=== PATIENT | female | born 2000 | race Caucasian/White ===

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

== ENCOUNTER 2022-07-03 17:57 | Emergency (ER) | payer BC ==
--- OUTSIDE RECORDS SUMMARY | 2022-07-03 18:05 | XMS REPORT | Continuity of Care Document ---
:2000 Author Organization [facility] t Address [address] [place] [address] Care Team Providers Name Role Phone Leilani Burger MD Primary Care Physician [phone] SERGIO LOPEZ Attending Clinician Unavailable ENOCH FRAGA Attending Clinician Unavailable Shar Moreno Attending Clinician Unknown, Attending Attending Clinician Unavailable SHAR COTE Attending Clinician Unavailable SULY MORALES Attending Clinician Unavailable LAB90 Attending Clinician Unavailable Team, [facility] Attending Clinician UnavailEnoch Ledesma PA-C Attending Clinician Doctor Unassigned, [place] Attending Clinician Unavailable Vanna Lopez LVN Attending Clinician Unavailable Apolonia IZAGUIRRE, Marina Bateman Attending Clinician Unavailable Chari Morataya Attending Clinician [phone] Rajani Frank Attending Clinician CHARI REYES Attending Clinician Unavailable SONIA FIGUEROA Attending Clinician Unavailable Sonia Figueroa MD Attending Clinician Niharika Reilly Attending Clinician TRACE OTTO III Attending Clinician Unavailable Alejandro IZAGUIRRE, Olivia Attending Clinician Unavailable LON FOX M.D. Attending Clinician UnavailKILLIAN Richey M.D. Attending Clinician Unavailable RENETTA ALEGRE M.D. Attending Clinician Unavailable ALDO LATIF M.D. Attending Clinician Unavailable Blanquita Pressley PA-C Attending Clinician SERGIO LOPEZ M.D. Attending Clinician Unavailable Balaji Armas MD Attending Clinician BALAJI ARMAS Attending Clinician Unavailable [address] Attending Clinician Unavailable Mdaina Dawson Attending Clinician MADINA MCKEON Attending Clinician Unavailable JENYN ALLISON M.D. Attending Clinician Unavailable DR CHANDAN MCKEON Attending Clinician Unavailable JOSUE ENCINAS M.D. Attending Clinician Unavailable DR CHANDAN MCKEON Admitting Clinician Unavailable Payers Payer Name Policy Type Policy Number Effective Date Expiration Date S ource [id number] PPO AND [id number] 2021 OUT OF STATE 00:00:00 BCBS 2 [id number] 2022 00:00:00 AETNA HMO [id number] 2018 00:00:00 Problems Condition Condition Condition Status Onset Resolution Last Treating Co mments Source Name Details Category Date Date Treatment Clinician Date Well adult Well adult Disease Active 2021-08 K elsey exam exam 08-18 Seybold 00:00: - 00 Externa l Seasonal Seasonal Disease Active 2021-08 Kelse y allergic allergic 08-18 Seybol d rhinitis rhinitis 00:00: - due to due to 00 Externa pollen pollen l 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 08-18 Seybold 00:00: - 00 Externa l 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 Sees. Dr. Allison and Dr. Soto Migraine Migraine Disease Active Overview: Un angella headache headache 12 Formattin ity of 00:00: g of this [place] 00 note Medical might be Branch different from the original. Dr. Alegre Spina Spina Disease Active Univers bifida bifida 12 ity of 00:00: [place] 00 Medical Branch Glaucoma Glaucoma Disease Active Overview: Un angella 6-12 Formattin ity of 00:00: g of this 00 note Medical might be Branch different from the original. Dr. Pacheco PTSD PTSD Disease Active Univers (post-trau (post-trau 01-25 it y of matic matic 00:00: [place] stress stress 00 Medical disorder) disorder) Bran ch Anxiety Anxiety Disease Active Univers - ity of 00:00: [place] 00 Medical Branch Constipati Constipati Disease Active U nivers on on 01-25 ity of 00:00: [place] 00 Medical Branch On oral On oral Disease Active Univers contracept contracept 09-15 it y of david pills david pills 00:00: [place] for for Medical non-contra non-contra Br anch ception ception indication indication Excessive Excessive Disease Active Uni vers or or 09-15 ity of frequent frequent 00:00: [place] menstruati menstruati 00 Me dical on on Branch Family Family Disease Active Univers history of history of 09-15 it y of stroke stroke 00:00: [place] 00 Medical Branch Epilepsy Epilepsy Problem Active [facility] ans Encephalit Encephalit Problem Active U T is is Physici ans 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 Migraine Migraine Problem Active [facility] Physici ans Blood per Blood per Problem Active UT rectum rectum Physici ans 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 Physici ans Hematochez Hematochez Problem Active U T ia ia Physici ans Incontinen Incontinen Problem Active U T ce ce Physici ans Chronic Chronic Problem Active UT constipati constipati Ph ysici on on ans Dysmenorrh Dysmenorrh Problem Active U T ea ea Physici ans On On Problem Active UT rituximab rituximab Phys ici therapy therapy ans 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 Seizure-li Seizure-li Problem Active U T ke ke Physici activity activity ans Allergies, Adverse Reactions, Alerts Allergy Allergy Status Severity Reaction(s) Onset Inactive Treating Comm ents Source Name Type Date Date Clinician Lidocain Allergy Active UT e to 10-20 Health substanc 00:00: e 00 Sulfamet Allergy Active UT hoxazole to 10-20 Health -Trimeth substanc 00:00: oprim e 00 Lidocain Propensi Active Negrita e Hcl ty to 3-07 Seybold adverse 00:00: - reaction 00 Externa s l Sulfamet Propensi Active Negrita hoxazole ty to 3-07 Seybold W-Trimet adverse 00:00: - hoprim reaction 00 Externa s l SULFAMET DRUG Active Rash 2018-08 Univers HOPRIM 2-20 ity of DS 00:00: [place] [facility] Sulfamet Propensi Active Rash 2018-08 Univer s hoprim ty to 2-20 ity of Ds adverse 00:00: [place] reaction 00 Medical s Branch Sulfa Propensi Active Swelling 2017-08 Negrita Drugs ty to 1-26 Seybold adverse 00:00: - reaction 00 Externa s l TREE Food Active Med Rash 2016-08 Univers NUTS 0-18 ity of 00:00: [place] 00 Medical Branch Tree Propensi Active Rash 2016-08 Univers Nuts ty to 0-18 ity of adverse 00:00: [place] reaction 00 Medical s Branch Bactrim Allergy Active UT to drug Physici (finding ans ) Lidocain Allergy Active UT e HCl to drug Physici SOLN (finding ans ) Nuts Allergy Active UT to Physici substanc ans e (finding ) Bactrim DA Active Unknown Rash [facility] Nut FA Active Severe Swelling of [facility] Family History Family Member Diagnosis Comments Start Date Stop Date Source Grandmother Family history of factor V [facility] Leiden mutation Grandfather Family history of [facility] Intestinal polyps aunt Family history of factor V [facility] Leiden mutation uncle Family history of [facility] ulcerative colitis Mother Family history of [facility] Non-smoker Mother Family history of Blood U T Physicians clots in brain Father Family history of [facility] Non-smoker Social History Social Habit Start Date Stop Date Quantity Comments Source Exposure to 2022-06-16 2022-06-26 Not sure University SARS-CoV-2 00:00:00 10:45:00 [place] Medical (event) Branch Alcohol intake 2022-06-18 2022-06-18 Lifetime Negrita sam - 00:00:00 00:00:00 non-drinker External (finding) Education 2022-06-18 2022-06-18 16 Negrita Neal - 00:00:00 00:00:00 External Tobacco use and 2022-06-18 2022-06-18 Smokeless tobacco Zeke Neal - exposure 00:00:00 00:00:00 non-user External Tobacco Comment 2016-12-10 2016-12-10 Denies smoking Unive rsity of 00:00:00 00:00:00 exposure [facility] Sex Assigned At [birth year] Negrita starkey - 00:00:00 00:00:00 External Smoking Status Start Date Stop Date Source Tobacco smoking consumption unknown [facility] Never smoked tobacco Negrita Billju walters - External Medications Ordered Filled Start Stop Current Ordering Indication Dosage Frequency Signature Comments Components Source Medication Medication Date Date Medication? Clinician (SIG) Name Name montelukast 2021-08- Yes [id number] 10mg Take 1 Univers (SINGULAIR) 08-26 1212 tablet by it y of 10 mg 00:00: 05:59 mouth in [place] tablet 00 :00 the [facility] Branch for 30 days. promethazin 2021-08- Yes [id number] 5mL Take 5 mL Univers e-dextromet 08-2619 by mouth 4 i ty of horphan 00:00: 05:59 (four) [place] 6.25-15 00 :00 times Medical mg/5 mL daily for Branch syrup 7 days. predniSONE 2021-08- Yes [id number] 40mg Take 2 Univers 20 mg 08-26-17 tablets by ity of tablet 00:00: 05:59 mouth in [place] 00 :00 the [facility] Branch for 5 days. Ethynodiol 2021-08- No 1{tbl} Take 1 Zeke suero Diac-Eth 08-18 tablet by Sejuo ld Estradiol 10:14: 00:00 mouth - 1-35 MG-MCG 49 :00 daily Externa oral Tablet l Polyethylen 2021-08 Yes Take by Dalton crow e Glycol 08-18 mouth Seybold 3350 09:45: - (MIRALAX 56 Externa OR) l Levocetiriz 2021-08 Yes [id number] 5mg Take 1 Negrita ine 03 tablet (5 Seybold Dihydrochlo 00:00: mg total) - ride 5 MG 00 by mouth Linen Aide a oral Tablet every day l at 5:00 PM Amoxicillin 2021-08 Yes Negrita 875 MG oral 0-27 Seybold Tablet 00:00: - 00 Externa l Estarylla Yes 1{tbl} Take 1 Yuli ey 0.25-35 9-10 tablet by Seybold MG-MCG oral 00:00: mouth - Tablet 00 daily Externa l venlafaxine 0 Yes 37.5mg Take 37.5 UT XR 4-22 mg by Health (Effexor-XR 00:00: mouth 1 ) 37.5 MG 00 (one) time 24 hr each day capsule in the morning. Adderall XR Yes 5mg Take 5 mg U T 5 MG 24 hr 3-29 by mouth 1 Hea lth capsule 00:00: (one) time 00 each day in the morning. norgestimat Yes [id number] 1{tbl} Take 1 Univers e-ethinyl 3-22 tablet by ity o f estradioL 00:00: mouth [place] (ESTARYLLA) 00 daily. Medica l 0.25-35 Branch mg-mcg per tablet norgestimat Yes [id number] 1{tbl} Take 1 Univers e-ethinyl 3-22 tablet by ity o f estradioL 00:00: mouth [place] (ESTARYLLA) 00 daily. Medica l 0.25-35 Branch mg-mcg per tablet norgestimat Yes [id number] 1{tbl} Take 1 Univers e-ethinyl 3-22 tablet by ity o f estradioL 00:00: mouth [place] (ESTARYLLA) 00 daily. Medica l 0.25-35 Branch mg-mcg per tablet norgestimat Yes [id number] 1{tbl} Take 1 Univers e-ethinyl 3-22 tablet by ity o f estradioL 00:00: mouth [place] (ESTARYLLA) 00 daily. Medica l 0.25-35 Branch mg-mcg per tablet norgestimat Yes [id number] 1{tbl} Take 1 Univers e-ethinyl 3-22 tablet by ity o f estradioL 00:00: mouth [place] (ESTARYLLA) 00 daily. Medica l 0.25-35 Branch mg-mcg per tablet ethynodiol- 2021-0 Yes TAKE 1 UT ethinyl 3-07 TABLET [facility] estradiol 10:10: DAILY. (Kelnor 01 ) 1-35 MG-MCG tablet levocetiriz 2021-0 Yes 5mg 5 mg. UT ine (Xyzal 10-20 Health Allergy 10:10: 24HR) 5 MG 01 tablet azithromyci 2021-0 Yes 500mg QD Take 500 U T n 3-03 mg by Health (Zithromax) 00:00: mouth 1 500 MG 00 (one) time tablet each day. TAKE 1 TABLET BY MOUTH EVERY DAY FOR 7 DAYS dexamethaso 2021-0 Yes 2mg Q.5D Take 2 mg U T ne 3-03 by mouth 2 Health (Decadron) 00:00: (two) 2 MG tablet 00 times a day. for 10 days gabapentin 2021-0 Yes TAKE 1 UT (Neurontin) 3-03 CAPSULE BY He alth 100 MG 00:00: MOUTH capsule 00 TWICE A DAY FOR 15 DAYS pantoprazol 2021-0 Yes UT e 3-03 Health (ProtoNix) 00:00: 40 MG EC 00 tablet pantoprazol 2021-0 Yes Univer s e 40 mg EC 3-03 ity of tablet 00:00: [place] [address] Medical Branch gabapentin 2022-0 Yes Univers 100 mg 3-03 ity of capsule 00:00: [place] [facility] dexAMETHaso 2-0 Yes Univer s ne 2 mg 3-03 ity of tablet 00:00: [place] [facility] azithromyci 2-0 Yes Univer s n 500 mg 3-03 ity of tablet 00:00: [place] [facility] pantoprazol 2-0 Yes Univer s e 40 mg EC 3-03 ity of tablet 00:00: [place] [address] Medical Branch gabapentin 2022-0 Yes Univers 100 mg 3-03 ity of capsule 00:00: [place] [address] Medical Branch dexAMETHaso 2022-0 Yes Univer s ne 2 mg 3-03 ity of tablet 00:00: [place] [facility] azithromyci 2-0 Yes Univer s n 500 mg 3-03 ity of tablet 00:00: [place] [address] Medical Branch pantoprazol 2022-0 Yes Univer s e 40 mg EC 3-03 ity of tablet 00:00: [place] 00 Medical Branch gabapentin 2-0 Yes Univers 100 mg 3-03 ity of capsule 00:00: [place] [facility] dexAMETHaso 2022-0 Yes Univer s ne 2 mg 3-03 ity of tablet 00:00: [place] [facility] azithromyci 2021-0 Yes Univer s n 500 mg 3-03 ity of tablet 00:00: [place] [facility] pantoprazol 2021-0 Yes Univer s e 40 mg EC 3-03 ity of tablet 00:00: [place] [facility] gabapentin 2-0 Yes Univers 100 mg 3-03 ity of capsule 00:00: [place] [facility] dexAMETHaso 202-0 Yes Univer s ne 2 mg 3-03 ity of tablet 00:00: [place] [facility] azithromyci 2021-0 Yes Univer s n 500 mg 3-03 ity of tablet 00:00: [place] [facility] pantoprazol 2021-0 Yes Univer s e 40 mg EC 3-03 ity of tablet 00:00: [place] [facility] gabapentin 2-0 Yes Univers 100 mg 3-03 ity of capsule 00:00: [place] [facility] dexAMETHaso 2021-0 Yes Univer s ne 2 mg 3-03 ity of tablet 00:00: [place] [facility] azithromyci 2021-0 Yes Univer s n 500 mg 3-03 ity of tablet 00:00: [place] [facility] ipratropium 2021-0 Yes 1 VIAL VIA Univers -albuteroL 2-25 NEBULIZER ity of 0.5 mg-3 00:00: NEEDED [place] mg(2.5 mg 00 INHALATION Medi lucie base)/3 mL EVERY 6 Branch nebulizer HRS 30 solution DAYS ipratropium 2021-0 Yes 1 VIAL VIA Univers -albuteroL 2-25 NEBULIZER ity of 0.5 mg-3 00:00: NEEDED [place] mg(2.5 mg 00 INHALATION Medi lucie base)/3 mL EVERY 6 Branch nebulizer HRS 30 solution DAYS ipratropium 2021-0 Yes 1 VIAL VIA Univers -albuteroL 2-25 NEBULIZER ity of 0.5 mg-3 00:00: NEEDED [place] mg(2.5 mg 00 INHALATION Medi lucie base)/3 mL EVERY 6 Branch nebulizer HRS 30 solution DAYS ipratropium 0 Yes 1 VIAL VIA Univers -albuteroL 2-25 NEBULIZER ity of 0.5 mg-3 00:00: NEEDED [place] mg(2.5 mg 00 INHALATION Medi lucie base)/3 mL EVERY 6 Branch nebulizer HRS 30 solution DAYS ipratropium 0 Yes 1 VIAL VIA Univers -albuteroL 2-25 NEBULIZER ity of 0.5 mg-3 00:00: NEEDED [place] mg(2.5 mg 00 INHALATION Medi lucie base)/3 mL EVERY 6 Branch nebulizer HRS 30 solution DAYS Albuterol-I Yes 1 VIAL VIA Negrita pratropium 2-25 NEBULIZER Seyb old 0.5-2.5 (3) 00:00: NEEDED - MG/3ML 00 INHALATION Externa inhalation EVERY 6 l Solution HRS 30 DAYS montelukast 0 Yes 10mg QD Take 10 mg UT (Singulair) 2-17 by mouth 1 He alth 10 MG 00:00: (one) time tablet 00 each day. Montelukast Yes 10mg Take 10 mg Negrita (SINGULAIR) 2-17 by mouth Seyb old 10 MG oral 00:00: daily - Tablet 00 Externa tablet l escitalopra Yes 20mg Take 20 mg Univers m oxalate 2-15 by mouth ity of 20 mg 00:00: daily. [place] tablet [facility] escitalopra Yes 20mg Take 20 mg Univers m oxalate 2-15 by mouth ity of 20 mg 00:00: daily. [place] tablet [facility] Branch escitalopra Yes 20mg Take 20 mg Univers m oxalate 2-15 by mouth ity of 20 mg 00:00: daily. [place] tablet [facility] Branch escitalopra Yes 20mg Take 20 mg Univers m oxalate 2-15 by mouth ity of 20 mg 00:00: daily. [place] tablet [facility] escitalopra Yes 20mg Take 20 mg Univers m oxalate 2-15 by mouth ity of 20 mg 00:00: daily. [place] tablet [facility] Escitalopra Yes 20mg Take 20 mg Negrita m Oxalate 2-15 by mouth Seybol d 20 MG oral 00:00: daily - Tablet 00 Externa l vitamin B 2021-0 Yes Take by Unive rs complex (B 2-13 mouth. ity of COMPLEX-VIT 11:08: [place] GARNETT B12 01 Medical ORAL) Branch Magnesium 2021-0 Yes Take by Unive rs Amino Acid 2-13 mouth. ity of Chelate 100 11:08: [place] mg Tab 01 Medical Branch vitamin B 2021-0 Yes Take by Unive rs complex (B 2-13 mouth. ity of COMPLEX-VIT 11:08: [place] GARNETT B12 Medical ORAL) Branch Magnesium 2021-0 Yes Take by Unive rs Amino Acid 2-13 mouth. ity of Chelate 100 11:08: [place] mg Tab 01 Medical Branch vitamin B 2021-0 Yes Take by Unive rs complex (B 2-13 mouth. ity of COMPLEX-VIT 11:08: [place] GARNETT B12 Medical ORAL) Branch Magnesium 2021-0 Yes Take by Unive rs Amino Acid 2-13 mouth. ity of Chelate 100 11:08: [place] mg Tab 01 Medical Branch vitamin B 2021-0 Yes Take by Unive rs complex (B 2-13 mouth. ity of COMPLEX-VIT 11:08: [place] GARNETT B12 01 Medical ORAL) Branch Magnesium 2021-0 Yes Take by Unive rs Amino Acid 2-13 mouth. ity of Chelate 100 11:08: [place] mg Tab 01 Medical Branch vitamin B 2021-0 Yes Take by Unive rs complex (B 2-13 mouth. ity of COMPLEX-VIT 11:08: [place] GARNETT B12 Medical ORAL) Branch Magnesium 2021-0 Yes Take by Unive rs Amino Acid 2-13 mouth. ity of Chelate 100 11:08: [place] mg Tab 01 Medical Branch benzonatate 2021-0 Yes TAKE 2 UT (Tessalon) 1-31 CAPSULES Healt h 100 MG 00:00: BY MOUTH capsule 00 EVERY 8 (EIGHT) HOURS NEEDED FOR COUGH. benzonatate 2021-0 Yes [id number] 200mg Take 2 Univers 100 mg 1-31 capsules ity of capsule 00:00: by mouth [place] 00 every 8 Medical (eight) Branch hours as needed for Cough. budesonide- 2021-0 Yes [id number] 2{puff} Inhale 2 Univers formoteroL 1-31 Puffs 2 ity of (SYMBICORT) 00:00: (two) [place] 160-4.5 00 times Medical mcg/actuati daily. Branch on inhaler benzonatate Yes [id number] 200mg Take 2 Univers 100 mg 1-31 capsules ity of capsule 00:00: by mouth [place] 00 every 8 Medical (eight) Branch hours as needed for Cough. budesonide- Yes [id number] 2{puff} Inhale 2 Univers formoteroL 1-31 Puffs 2 ity of (SYMBICORT) 00:00: (two) [place] 160-4.5 00 times Medical mcg/actuati daily. Branch on inhaler benzonatate Yes [id number] 200mg Take 2 Univers 100 mg 1-31 capsules ity of capsule 00:00: by mouth [place] 00 every 8 Medical (eight) Branch hours as needed for Cough. budesonide- Yes [id number] 2{puff} Inhale 2 Univers formoteroL 1-31 Puffs 2 ity of (SYMBICORT) 00:00: (two) [place] 160-4.5 00 times Medical mcg/actuati daily. Branch on inhaler benzonatate Yes [id number] 200mg Take 2 Univers 100 mg 1-31 capsules ity of capsule 00:00: by mouth [place] 00 every 8 Medical (eight) Branch hours as needed for Cough. budesonide- Yes [id number] 2{puff} Inhale 2 Univers formoteroL 1-31 Puffs 2 ity of (SYMBICORT) 00:00: (two) [place] 160-4.5 00 times Medical mcg/actuati daily. Branch on inhaler benzonatate 0 Yes [id number] 200mg Take 2 Univers 100 mg 1-31 capsules ity of capsule 00:00: by mouth [place] 00 every 8 Medical (eight) Branch hours as needed for Cough. budesonide- 2021-0 Yes [id number] 2{puff} Inhale 2 Univers formoteroL 1-31 Puffs 2 ity of (SYMBICORT) 00:00: (two) [place] 160-4.5 00 times Medical mcg/actuati daily. Branch on inhaler OLANZapine 2021-1 Yes Univers 2.5 mg 2-29 ity of tablet 00:00: [place] 00 Medical Branch OLANZapine 2020-1 Yes Univers 2.5 mg 2-29 ity of tablet 00:00: [place] 00 Medical Branch OLANZapine 2020-1 Yes Univers 2.5 mg 2-29 ity of tablet 00:00: [place] 00 Medical Branch OLANZapine 2020-1 Yes Univers 2.5 mg 2-29 ity of tablet 00:00: [place] 00 Medical Branch OLANZapine 2020-1 Yes Univers 2.5 mg 2-29 ity of tablet 00:00: [place] 00 Medical Branch polyethylen 2020- Yes Take by Uni vers e glycol 1-10 mouth. ity of 3350 14:17: [place] (MIRALAX 10 Medical ORAL) Branch levocetiriz 2020- Yes 5mg Take 5 mg U nivers ine (XYZAL) 1-10 by mouth ity of 5 mg tablet 14:17: every [place] 10 evening. Medical Branch polyethylen 2020- Yes Take by Uni vers e glycol 1-10 mouth. ity of 3350 14:17: [place] (MIRALAX 10 Medical ORAL) Branch levocetiriz 2019- Yes 5mg Take 5 mg U nivers ine (XYZAL) 1-10 by mouth ity of 5 mg tablet 14:17: every [place] 10 evening. Medical Branch polyethylen 2020- Yes Take by Uni vers e glycol 1-10 mouth. ity of 3350 14:17: [place] (MIRALAX 10 Medical ORAL) Branch levocetiriz 2020- Yes 5mg Take 5 mg U nivers ine (XYZAL) 1-10 by mouth ity of 5 mg tablet 14:17: every [place] 10 evening. Medical Branch polyethylen 2019- Yes Take by Uni vers e glycol 1-10 mouth. ity of 3350 14:17: [place] (MIRALAX 10 Medical ORAL) Branch levocetiriz 2020- Yes 5mg Take 5 mg U nivers ine (XYZAL) 1-10 by mouth ity of 5 mg tablet 14:17: every [place] 10 evening. Medical Branch polyethylen 2020- Yes Take by Uni vers e glycol 1-10 mouth. ity of 3350 14:17: [place] (MIRALAX 10 Medical ORAL) Branch levocetiriz 2020- Yes 5mg Take 5 mg U nivers ine (XYZAL) 1-10 by mouth ity of 5 mg tablet 14:17: every [place] 10 evening. Medical Branch busPIRone 5 2020- Yes 5mg Take 5 mg U nivers mg tablet 0-21 by mouth 2 ity of 00:00: (two) [place] 00 times Medical daily. Branch busPIRone 5 2019- Yes 5mg Take 5 mg U nivers mg tablet 0-21 by mouth 2 ity of 00:00: (two) [place] 00 times Medical daily. Branch busPIRone 5 2020- Yes 5mg Take 5 mg U nivers mg tablet 0-21 by mouth 2 ity of 00:00: (two) [place] 00 times Medical daily. Branch busPIRone 5 2019- Yes 5mg Take 5 mg U nivers mg tablet 0-21 by mouth 2 ity of 00:00: (two) [place] 00 times Medical daily. Branch busPIRone 5 2019- Yes 5mg Take 5 mg U nivers mg tablet 0-21 by mouth 2 ity of 00:00: (two) [place] 00 times Medical daily. Branch albuterol 2020-0 Yes [id number] 2.5mg Inhale 3 Univers 2.5 mg /3 5-22 mL every 4 ity of mL (0.083 00:00: ([facility] [place]) [place] %) 00 hours as Medical nebulizer needed for Bran ch solution Wheezing, Shortness of Breath, Bronchospa sm or Chest tightness. albuterol 2020-0 Yes [id number] 2.5mg Inhale 3 Univers 2.5 mg /3 5-22 mL every 4 ity of mL (0.083 00:00: ([facility]) [place] %) 00 hours as Medical nebulizer needed for Bran ch solution Wheezing, Shortness of Breath, Bronchospa sm or Chest tightness. albuterol 2020-0 Yes [id number] 2.5mg Inhale 3 Univers 2.5 mg /3 5-22 mL every 4 ity of mL (0.083 00:00: (four) [place] %) 00 hours as Medical nebulizer needed for Bran ch solution Wheezing, Shortness of Breath, Bronchospa sm or Chest tightness. albuterol 2020-0 Yes [id number] 2.5mg Inhale 3 Univers 2.5 mg /3 5-22 mL every 4 ity of mL (0.083 00:00: (four) [place] %) 00 hours as Medical nebulizer needed for Bran ch solution Wheezing, Shortness of Breath, Bronchospa sm or Chest tightness. albuterol Yes [id number] 2.5mg Inhale 3 Univers 2.5 mg /3 5-22 mL every 4 ity of mL (0.083 00:00: (four) [place] %) 00 hours as Medical nebulizer needed for Bran ch solution Wheezing, Shortness of Breath, Bronchospa sm or Chest tightness. Rituxan 100 Rituxan 100 Yes KILLIAN Infuse UT MG/10ML MG/10ML 2-19 GUS M.D. once every Physici Intravenous Intravenous 00:00: five ans Solution Solution 00 months. riTUXimab Yes Infuse UT (Rituxan) 2-19 once every Heal th 100 MG/10ML 00:00: five chemo 00 months. injection montelukast 2018-08 Yes [id number] TAKE 1 Univers 10 mg 1-11 TABLET BY ity of tablet 00:00: MOUTH [place] 00 EVERYDAY [id number] TA[facility] 1 Univers 10 mg 1-11 TABLET BY ity of tablet 00:00: MOUTH [place] 00 EVERYDAY Medical AT [facility] 2018-08 Yes [id number] TAKE 1 Univers 10 mg 1-11 TABLET BY ity of tablet 00:00: MOUTH [place] 00 EVERYDAY Medical AT [facility] 2018-08 Yes [id number] TAKE 1 Univers 10 mg 1-11 TABLET BY ity of tablet 00:00: MOUTH [place] [facility] [id number] TAKE 1 Univers 10 mg 1-11 TABLET BY ity of tablet 00:00: MOUTH [place] 00 EVERYDAY Medical AT [facility] Escitalopra Escitalopra 2018-08 Yes JENNY TAKE ONE [facility] m Oxalate m Oxalate 1-05 HUMAIRA TAB DAILY. [facility] 20 MG Oral 20 MG Oral 00:00: M.D. a ns Tablet Tablet escitalopra 2018-08 Yes 20mg 20 mg. [facility] m (Lexapro) 1-05 Health 20 MG 00:00: tablet 00 escitalopra 2018-08 Yes 10mg Take 10 mg Univers m oxalate 0-22 by mouth ity of 10 mg 00:00: daily. tablet Medical Branch escitalopra 2018-08 Yes 10mg Take 10 mg Univers m oxalate 0-22 by mouth ity of 10 mg 00:00: daily. tablet Medical [place] escitalopra 2018-08 Yes 10mg Take 10 mg Univers m oxalate 0-22 by mouth ity of 10 mg 00:00: daily. tablet Medical [place] escitalopra 2018-08 Yes 10mg Take 10 mg Univers m oxalate 0-22 by mouth ity of 10 mg 00:00: daily. tablet Medical [place] escitalopra 2018-08 Yes 10mg Take 10 mg Univers m oxalate 0-22 by mouth ity of 10 mg 00:00: daily. tablet [facility] ARIPiprazol Yes TAKE 1 Univ ers e 5 mg 6-07 TABLET BY ity of tablet 00:00: MOUTH EVERYDAY Medical AT BEDTIME [place] ARIPiprazol 0 Yes TAKE 1 Univ ers e 5 mg 6-07 TABLET BY ity of tablet 00:00: MOUTH EVERYDAY Medical AT BEDTIME [place] ARIPiprazol Yes TAKE 1 Univ ers e 5 mg 6-07 TABLET BY ity of tablet 00:00: MOUTH EVERYDAY Medical AT BEDTIME [place] ARIPiprazol 0 Yes TAKE 1 Univ ers e 5 mg 6-07 TABLET BY ity of tablet 00:00: MOUTH EVERYDAY Medical AT BEDTIME [place] ARIPiprazol 0 Yes TAKE 1 Univ ers e 5 mg 6-07 TABLET BY ity of tablet 00:00: MOUTH EVERYDAY Medical AT BEDTIME Branch albuterol 0 Yes [id number] 2{puff} Inhale 2 Univers (PROAIR 3-07 Puffs ity of HFA) 90 00:00: every 6 [place] mcg/actuati 00 (six) Medical on inhaler hours as Branc h needed for Wheezing or Shortness of Breath. Nebulizer & 2019-0 Yes [id number] Use as Univers Compressor 3-07 directed ity o f For Neb 00:00: [place] [facility] albuterol 2018-0 Yes [id number] 2{puff} Inhale 2 Univers (PROAIR 3-07 Puffs ity of HFA) 90 00:00: every 6 [place] mcg/actuati 00 (six) Medical on inhaler hours as Branc h needed for Wheezing or Shortness of Breath. Nebulizer & Yes [id number] Use as Univers Compressor 3-07 directed ity o f For Neb 00:00: Medical Branch albuterol Yes [id number] 2{puff} Inhale 2 Univers (PROAIR 3-07 Puffs ity of HFA) 90 00:00: every 6 [place] mcg/actuati 00 (six) Medical on inhaler hours as Branc h needed for Wheezing or Shortness of Breath. Nebulizer & Yes [id number] Use as Univers Compressor 3-07 directed ity o f For Neb 00:00: Medical Branch albuterol Yes [id number] 2{puff} Inhale 2 Univers (PROAIR 3-07 Puffs ity of HFA) 90 00:00: every 6 [place] mcg/actuati 00 (six) Medical on inhaler hours as Branc h needed for Wheezing or Shortness of Breath. Nebulizer & Yes [id number] Use as Univers Compressor 3-07 directed ity o f For Neb 00:00: Medical Branch albuterol Yes [id number] 2{puff} Inhale 2 Univers (PROAIR 3-07 Puffs ity of HFA) 90 00:00: every 6 [place] mcg/actuati 00 (six) Medical on inhaler hours as Branc h needed for Wheezing or Shortness of Breath. Nebulizer & Yes [id number] Use as Univers Compressor 3-07 directed ity o f For Neb 00:00: Medical Branch Famotidine Famotidine Yes JENNY QD TAKE 1 UT 20 MG Oral 20 MG Oral 1-15 HUMAIRA TABLET [facility] Tablet Tablet 00:00: M.D. DAILY ans 00 DIRECTED. prazosin 1 Yes TAKE ONE Uni vers mg capsule 1-12 CAPSULE BY ity of 00:00: MOUTH IN [place] THE Medical EVENING Branch prazosin 1 Yes TAKE ONE Uni vers mg capsule 1-12 CAPSULE BY ity of 00:00: MOUTH IN [place] THE Medical EVENING Branch prazosin 1 Yes TAKE ONE Uni vers mg capsule 1-12 CAPSULE BY ity of 00:00: MOUTH IN [place] 00 THE Medical EVENING Branch prazosin 1 Yes TAKE ONE Uni vers mg capsule 1-12 CAPSULE BY ity of 00:00: MOUTH IN [place] 00 THE [facility] Branch prazosin 1 Yes TAKE ONE Uni vers mg capsule 1-12 CAPSULE BY ity of 00:00: MOUTH IN [place] 00 [facility] Levocetiriz 2016-08- No 5mg 5 mg Kelse y ine 0-26 06-18 Seybold Dihydrochlo 00:00: 00:00 - ride 5 MG 00 :00 Externa oral Tablet l Xyzal Xyzal Yes 1 QD TAKE 1 UT Allergy Allergy TABLET [facility] 24HR 5 MG 24HR 5 MG DAILY. ans Oral Tablet Oral Tablet Kelnor 1/35 Kelnor 1/35 Yes 1 QD TAKE 1 UT 1-35 MG-MCG 1-35 MG-MCG TABLET [facility] Oral Tablet Oral Tablet DAILY. ans Abilify Abilify Yes 7.5 QD take 7.5 UT TABS TABS mg daily [facility] ans Culturelle Culturelle Yes 1 QD TAKE 1 U T Oral Oral CAPSULE [facility] Capsule Capsule DAILY ans Chelated Chelated Yes QD TAKE 1 UT Magnesium Magnesium TABLET Phy sici TABS TABS DAILY ans Multivitami Multivitami Yes U T ns CAPS ns CAPS [facility] ans Singulair Singulair Yes UT PACK PACK [facility] ans Melatonin Melatonin Yes UT TABS TABS [facility] ans Advil TABS Advil TABS Yes TAKE UT TABLET PRN [facility] ans ZyPREXA 10 ZyPREXA 10 Yes 1 QD TAKE 1 U T MG Oral MG Oral TABLET [facility] Tablet Tablet DAILY. ans busPIRone busPIRone Yes Q0.3333D TAKE 1 UT HCl - 15 MG HCl - 15 MG TABLET 3 [facility] Oral Tablet Oral Tablet TIMES ans DAILY. Immunizations Ordered Immunization Filled Immunization Date Status Commen ts Source Name Name Influenza Virus 2022-06-18 Completed Negrita strakey - Vaccine, age 6 months 00:00:00 Ext ernal and up Meningococcal 2022-03-14 Completed Negrita walters - Vaccine- 00:00:00 External Conjugate(Menactra) SARS-COV-2 COVID-19 2020-11-06 Completed Keyla quintanilla of [employer]/J&J VACCINE 00:00:00 [facility] SARS-COV-2 COVID-19 2020-11-06 Completed Unive rsity of CRUZ/J&J VACCINE 00:00:00 [facility] SARS-COV-2 COVID-19 2020-11-06 Completed Unive rsity of CRUZ/J&J VACCINE 00:00:00 [facility] SARS-COV-2 COVID-19 2020-11-06 Completed Unive rsity of CRUZ/J&J VACCINE 00:00:00 [facility] SARS-COV-2 COVID-19 2020-11-06 Completed Unive rsity of CRUZ/J&J VACCINE 00:00:00 [facility] Influenza Virus 2020-06-25 Completed Universit y of Vaccine Quad .5 mL IM 00:00:00 [place] [facility] Medical 6+ MO Branch Influenza Virus 2020-06-25 Completed Universit y of Vaccine Quad .5 mL IM 00:00:00 [place] [facility] 6+ MO Branch Influenza Virus 2020-06-25 Completed Universit y of Vaccine Quad .5 mL IM 00:00:00 [place] [facility] 6+ MO Branch Influenza Virus 2020-06-25 Completed Universit y of Vaccine Quad .5 mL IM 00:00:00 [place] [facility] 6+ MO Branch Influenza Virus 2020-06-25 Completed Universit y of Vaccine Quad .5 mL IM 00:00:00 [place] [facility] 6+ MO Branch Influenza Virus 2020-06-25 Completed Negrita starkey - Vaccine, No Preserv, 00:00:00 Exte rnal age 6 months and up HPV9 2018-03-07 Completed University of 00:00:00 [facility] HPV9 2018-03-07 Completed University of 00:00:00 [facility] HPV9 2018-03-07 Completed University of 00:00:00 [facility] HPV9 2018-03-07 Completed University of 00:00:00 [facility] HPV9 2018-03-07 Completed University of 00:00:00 [facility] HPV 9 (Human 2018-03-07 Completed Negrita Cope ld - Papillomavirus) 00:00:00 External HPV 9 (Human 2018-01-07 Completed Negrita sanchez - Papillomavirus) 00:00:00 External HPV9 2018-01-07 Completed University of 00:00:00 [facility] HPV9 2018-01-07 Completed University of 00:00:00 [facility] HPV9 2018-01-07 Completed University of 00:00:00 [facility] HPV9 2018-01-07 Completed University of 00:00:00 [facility] HPV9 2018-01-07 Completed University of 00:00:00 [facility] Meningococcal Vaccine 2013-11-27 Completed Dalton Neal - Polysaccharide 00:00:00 External Tdap- (Boostrix, 2013-11-27 Completed Negrita muñoz - Adacel) 00:00:00 External Meningococcal Vaccine 2013-11-27 Completed Uni versity of 00:00:00 [facility] TDAP 2013-11-27 Completed University of 00:00:00 [facility] Meningococcal Vaccine 2013-11-27 Completed Uni versity of 00:00:00 [facility] TDAP 2013-11-27 Completed University of 00:00:00 [facility] Meningococcal Vaccine 2013-11-27 Completed Uni versity of 00:00:00 [facility] TDAP 2013-11-27 Completed University of 00:00:00 [facility] Meningococcal Vaccine 2013-11-27 Completed Uni versity of 00:00:00 [facility] TDAP 2013-11-27 Completed University of 00:00:00 [facility] Meningococcal Vaccine 2013-11-27 Completed Uni versity of 00:00:00 [facility] TDAP 2013-11-27 Completed University of 00:00:00 [facility] Influenza Virus 2011-06-04 Completed Negrita starkey - Vaccine, No Preserv, 00:00:00 Exte rnal age 6 months and up Influenza Virus 2011-06-04 Completed Universit y of Vaccine Quad IM 3+ 00:00:00 [facility] Influenza Virus 2011-06-04 Completed Universit y of Vaccine Quad IM 3+ 00:00:00 [facility] Influenza Virus 2011-06-04 Completed Universit y of Vaccine Quad IM 3+ 00:00:00 [facility] Influenza Virus 2011-06-04 Completed Universit y of Vaccine Quad IM 3+ 00:00:00 [facility] Influenza Virus 2011-06-04 Completed Universit y of Vaccine Quad IM 3+ 00:00:00 [facility] DTaP 2006-11-16 Completed Negrita Neal - 00:00:00 External HEPATITIS A- 2006-11-16 Completed Negrita Cope ld - PEDI/ADOL 00:00:00 External MMR- Measles, Mumps, 2006-11-16 Completed Yuli Neal - Rubella 00:00:00 External Polio Vaccine 2006-11-16 Completed Negrita Jarvis old - 00:00:00 External Varicella Vaccine 2006-11-16 Completed Negrita Neal - 00:00:00 External DTAP 2006-11-16 Completed University of 00:00:00 [facility] HEPATITIS A 2006-11-16 Completed University of 00:00:00 [facility] MMR 2006-11-16 Completed University of 00:00:00 [facility] Polio (IPV/OPV) 2006-11-16 Completed Universit y of 00:00:00 [facility] Varicella 2006-11-16 Completed University of (varivax)(chicken 00:00:00 [place] [facility] ed[facility] pox) Branch DTAP 2006-11-16 Completed University of 00:00:00 [facility] HEPATITIS A 2006-11-16 Completed University of 00:00:00 [facility] MMR 2006-11-16 Completed University of 00:00:00 [facility] Polio (IPV/OPV) 2006-11-16 Completed Universit y of 00:00:00 [facility] Varicella 2006-11-16 Completed University of (varivax)(chicken 00:00:00 [place] [facility] ed[facility] pox) Branch DTAP 2006-11-16 Completed University of 00:00:00 [facility] HEPATITIS A 2006-11-16 Completed University of 00:00:00 [facility] MMR 2006-11-16 Completed University of 00:00:00 [facility] Polio (IPV/OPV) 2006-11-16 Completed Universit y of 00:00:00 [facility] Varicella 2006-11-16 Completed University of (varivax)(chicken 00:00:00 [place] [facility] pox) Branch DTAP 2006-11-16 Completed University of 00:00:00 [facility] HEPATITIS A 2006-11-16 Completed University of 00:00:00 [facility] MMR 2006-11-16 Completed University of 00:00:00 [facility] Polio (IPV/OPV) 2006-11-16 Completed Universit y of 00:00:00 [facility] Varicella 2006-11-16 Completed University of (varivax)(chicken 00:00:00 [place] M edical pox) Branch DTAP 2006-11-16 Completed University of 00:00:00 [facility] HEPATITIS A 2006-11-16 Completed University of 00:00:00 [facility] MMR 2006-11-16 Completed University of 00:00:00 [facility] Polio (IPV/OPV) 2006-11-16 Completed Universit y of 00:00:00 [facility] Varicella 2006-11-16 Completed University of (varivax)(chicken 00:00:00 [facility] edical pox) Branch HEPATITIS A- 2006-04-16 Completed Negrita Cope ld - PEDI/ADOL 00:00:00 External HEPATITIS A 2006-04-16 Completed University of 00:00:00 [facility] HEPATITIS A 2006-04-16 Completed University of 00:00:00 [facility] HEPATITIS A 2006-04-16 Completed University of 00:00:00 [facility] HEPATITIS A 2006-04-16 Completed University of 00:00:00 [facility] HEPATITIS A 2006-04-16 Completed University of 00:00:00 [facility] DTaP 2004-02-06 Completed Negrita Neal - 00:00:00 External Tetanus Toxoid/HIB 2004-02-06 Completed Negrita Neal - 00:00:00 External Pneumococcal Vaccine, 2004-02-06 Completed Dalton Neal - Conjugate 13 00:00:00 External DTAP 2004-02-06 Completed University of 00:00:00 [facility] HIB 4 Dose Schedule 2004-02-06 Completed Unive rsity of 00:00:00 [facility] Pneumococcal 13 2004-02-06 Completed Universit y of Conjugate, PCV13 00:00:00 [facility] dical (Prevnar 13) Branch DTAP 2004-02-06 Completed University of 00:00:00 [facility] HIB 4 Dose Schedule 2004-02-06 Completed Unive rsity of 00:00:00 [facility] Pneumococcal 13 2004-02-06 Completed Universit y of Conjugate, PCV13 00:00:00 [facility] dical (Prevnar 13) Branch DTAP 2004-02-06 Completed University of 00:00:00 [facility] HIB 4 Dose Schedule 2004-02-06 Completed Unive rsity of 00:00:00 [facility] Pneumococcal 13 2004-02-06 Completed Universit y of Conjugate, PCV13 00:00:00 [place] [facility] dical (Prevnar 13) Branch DTAP 2004-02-06 Completed University of 00:00:00 [facility] HIB 4 Dose Schedule 2004-02-06 Completed Unive rsity of 00:00:00 [facility] Pneumococcal 13 2004-02-06 Completed Universit y of Conjugate, PCV13 00:00:00 [facility] dical (Prevnar 13) Branch DTAP 2004-02-06 Completed University of 00:00:00 [facility] HIB 4 Dose Schedule 2004-02-06 Completed Unive rsity of 00:00:00 [facility] Pneumococcal 13 2004-02-06 Completed Universit y of Conjugate, PCV13 00:00:00 [facility] dical (Prevnar 13) Branch MMR- Measles, Mumps, 2003-10-29 Completed Yuli Neal - Rubella 00:00:00 External Varicella Vaccine 2003-10-29 Completed Negrita Neal - 00:00:00 External MMR 2003-10-29 Completed University of 00:00:00 [facility] Varicella 2003-10-29 Completed University of (varivax)(chicken 00:00:00 [place] [facility] pox) Branch MMR 2003-10-29 Completed University of 00:00:00 [facility] Varicella 2003-10-29 Completed University of (varivax)(chicken 00:00:00 [place] [facility] pox) Branch MMR 2003-10-29 Completed University of 00:00:00 [facility] Varicella 2003-10-29 Completed University of (varivax)(chicken 00:00:00 [place] [facility] edical pox) Branch MMR 2003-10-29 Completed University of 00:00:00 [facility] Varicella 2003-10-29 Completed University of (varivax)(chicken 00:00:00 [place] M edical pox) Branch MMR 2003-10-29 Completed University of 00:00:00 [facility] Varicella 2003-10-29 Completed University of (varivax)(chicken 00:00:00 [place] M edical pox) Branch DTaP 2003-04-27 Completed Negrita Neal - 00:00:00 External Hepatitis B, 2003-04-27 Completed Negrita Cope ld - Adolescent Or 00:00:00 External Pediatric Tetanus Toxoid/HIB 2003-04-27 Completed Negrita Neal - 00:00:00 External Pneumococcal Vaccine, 2003-04-27 Completed Dalton Neal - Conjugate 13 00:00:00 External Polio Vaccine 2003-04-27 Completed Negrita walters - 00:00:00 External DTAP 2003-04-27 Completed University of 00:00:00 [facility] HIB 4 Dose Schedule 2003-04-27 Completed Unive rsity of 00:00:00 [facility] Hep B, Adol or Pedi 2003-04-27 Completed Unive rsity of Dosage 00:00:00 [facility] Pneumococcal 13 2003-04-27 Completed Universit y of Conjugate, PCV13 00:00:00 [facility] dical (Prevnar 13) Branch Polio (IPV/OPV) 2003-04-27 Completed Universit y of 00:00:00 [facility] DTAP 2003-04-27 Completed University of 00:00:00 [facility] HIB 4 Dose Schedule 2003-04-27 Completed Unive rsity of 00:00:00 [facility] Hep B, Adol or Pedi 2003-04-27 Completed Unive rsity of Dosage 00:00:00 [facility] Pneumococcal 13 2003-04-27 Completed Universit y of Conjugate, PCV13 00:00:00 [facility] dical (Prevnar 13) Branch Polio (IPV/OPV) 2003-04-27 Completed Universit y of 00:00:00 [facility] DTAP 2003-04-27 Completed University of 00:00:00 [facility] HIB 4 Dose Schedule 2003-04-27 Completed Unive rsity of 00:00:00 [facility] Hep B, Adol or Pedi 2003-04-27 Completed Unive rsity of Dosage 00:00:00 [facility] Pneumococcal 13 2003-04-27 Completed Universit y of Conjugate, PCV13 00:00:00 [facility] dical (Prevnar 13) Branch Polio (IPV/OPV) 2003-04-27 Completed Universit y of 00:00:00 [facility] DTAP 2003-04-27 Completed University of 00:00:00 [facility] HIB 4 Dose Schedule 2003-04-27 Completed Unive rsity of 00:00:00 [facility] Hep B, Adol or Pedi 2003-04-27 Completed Unive rsity of Dosage 00:00:00 [facility] Pneumococcal 13 2003-04-27 Completed Universit y of Conjugate, PCV13 00:00:00 [facility] dical (Prevnar 13) Branch Polio (IPV/OPV) 2003-04-27 Completed Universit y of 00:00:00 [facility] DTAP 2003-04-27 Completed University of 00:00:00 [facility] HIB 4 Dose Schedule 2003-04-27 Completed Unive rsity of 00:00:00 [facility] Hep B, Adol or Pedi 2003-04-27 Completed Unive rsity of Dosage 00:00:00 [facility] Pneumococcal 13 2003-04-27 Completed Universit y of Conjugate, PCV13 00:00:00 [facility] dical (Prevnar 13) Branch Polio (IPV/OPV) 2003-04-27 Completed Universit y of 00:00:00 [facility] DTaP 2003-02-27 Completed Negrita Neal - 00:00:00 External Hepatitis B, 2003-02-27 Completed Negrita Cope ld - Adolescent Or 00:00:00 External Pediatric Tetanus Toxoid/HIB 2003-02-27 Completed Negrita Neal - 00:00:00 External Pneumococcal Vaccine, 2003-02-27 Completed Dalton Neal - Conjugate 13 00:00:00 External Polio Vaccine 2003-02-27 Completed Negrita walters - 00:00:00 External DTAP 2003-02-27 Completed University of 00:00:00 [facility] HIB 4 Dose Schedule 2003-02-27 Completed Unive rsity of 00:00:00 [facility] Hep B, Adol or Pedi 2003-02-27 Completed Unive rsity of Dosage 00:00:00 [facility] Pneumococcal 13 2003-02-27 Completed Universit y of Conjugate, PCV13 00:00:00 [facility] dical (Prevnar 13) Branch Polio (IPV/OPV) 2003-02-27 Completed Universit y of 00:00:00 [facility] DTAP 2003-02-27 Completed University of 00:00:00 [facility] HIB 4 Dose Schedule 2003-02-27 Completed Unive rsity of 00:00:00 [facility] Hep B, Adol or Pedi 2003-02-27 Completed Unive rsity of Dosage 00:00:00 [facility] Pneumococcal 13 2003-02-27 Completed Universit y of Conjugate, PCV13 00:00:00 [place] [facility] (Prevnar 13) Branch Polio (IPV/OPV) 2003-02-27 Completed Universit y of 00:00:00 [facility] DTAP 2003-02-27 Completed University of 00:00:00 [facility] HIB 4 Dose Schedule 2003-02-27 Completed Unive rsity of 00:00:00 [facility] Hep B, Adol or Pedi 2003-02-27 Completed Unive rsity of Dosage 00:00:00 [facility] Pneumococcal 13 2003-02-27 Completed Universit y of Conjugate, PCV13 00:00:00 [facility] dical (Prevnar 13) Branch Polio (IPV/OPV) 2003-02-27 Completed Universit y of 00:00:00 [facility] DTAP 2003-02-27 Completed University of 00:00:00 [facility] HIB 4 Dose Schedule 2003-02-27 Completed Unive rsity of 00:00:00 [facility] Hep B, Adol or Pedi 2003-02-27 Completed Unive rsity of Dosage 00:00:00 [facility] Pneumococcal 13 2003-02-27 Completed Universit y of Conjugate, PCV13 00:00:00 [facility] dical (Prevnar 13) Branch Polio (IPV/OPV) 2003-02-27 Completed Universit y of 00:00:00 [facility] DTAP 2003-02-27 Completed University of 00:00:00 [facility] HIB 4 Dose Schedule 2003-02-27 Completed Unive rsity of 00:00:00 [facility] Hep B, Adol or Pedi 2003-02-27 Completed Unive rsity of Dosage 00:00:00 [facility] Pneumococcal 13 2003-02-27 Completed Universit y of Conjugate, PCV13 00:00:00 [facility] dical (Prevnar 13) Branch Polio (IPV/OPV) 2003-02-27 Completed Universit y of 00:00:00 [facility] DTaP 2002 Completed Negrita Neal - 00:00:00 External Hepatitis B, 2002 Completed Negrita Cope ld - Adolescent Or 00:00:00 External Pediatric Tetanus Toxoid/HIB 2002 Completed Negrita Neal - 00:00:00 External Pneumococcal Vaccine, 2002 Completed Dalton sey Seybold - Conjugate 13 00:00:00 External Polio Vaccine 2002 Completed Negrita Jarvis old - 00:00:00 External DTAP 2002 Completed University of 00:00:00 [facility] HIB 4 Dose Schedule 2002 Completed Unive rsity of 00:00:00 [facility] Hep B, Adol or Pedi 2002 Completed Unive rsity of Dosage 00:00:00 [facility] Pneumococcal 13 2002 Completed Universit y of Conjugate, PCV13 00:00:00 [place] [facility] (Prevnar 13) Branch Polio (IPV/OPV) 2002 Completed Universit y of 00:00:00 [facility] DTAP 2002 Completed University of 00:00:00 [facility] HIB 4 Dose Schedule 2002 Completed Unive rsity of 00:00:00 [facility] Hep B, Adol or Pedi 2002 Completed Unive rsity of Dosage 00:00:00 [facility] Pneumococcal 13 2002 Completed Universit y of Conjugate, PCV13 00:00:00 [facility] dical (Prevnar 13) Branch Polio (IPV/OPV) 2002 Completed Universit y of 00:00:00 [facility] DTAP 2002 Completed University of 00:00:00 [facility] HIB 4 Dose Schedule 2002 Completed Unive rsity of 00:00:00 [facility] Hep B, Adol or Pedi 2002 Completed Unive rsity of Dosage 00:00:00 [facility] Pneumococcal 13 2002 Completed Universit y of Conjugate, PCV13 00:00:00 [facility] dical (Prevnar 13) Branch Polio (IPV/OPV) 2002 Completed Universit y of 00:00:00 [facility] DTAP 2002 Completed University of 00:00:00 [facility] HIB 4 Dose Schedule 2002 Completed Unive rsity of 00:00:00 [facility] Hep B, Adol or Pedi 2002 Completed Unive rsity of Dosage 00:00:00 [facility] Pneumococcal 13 2002 Completed Universit y of Conjugate, PCV13 00:00:00 [facility] dical (Prevnar 13) Branch Polio (IPV/OPV) 2002 Completed Universit y of 00:00:00 [facility] DTAP 2002 Completed University of 00:00:00 [facility] HIB 4 Dose Schedule 2002 Completed Unive rsity of 00:00:00 [facility] Hep B, Adol or Pedi 2002 Completed Unive rsity of Dosage 00:00:00 [facility] Pneumococcal 13 2002 Completed Universit y of Conjugate, PCV13 00:00:00 [facility] dical (Prevnar 13) Branch Polio (IPV/OPV) 2002 Completed Universit y of 00:00:00 [facility] Hepatitis B, 2002 Completed Negrita Cope ld - Adolescent Or 00:00:00 External Pediatric Hep B, Adol or Pedi 2002 Completed Unive rsity of Dosage 00:00:00 [facility] Hep B, Adol or Pedi 2002 Completed Unive rsity of Dosage 00:00:00 [facility] Hep B, Adol or Pedi 2002 Completed Unive rsity of Dosage 00:00:00 [facility] Hep B, Adol or Pedi 2002 Completed Unive rsity of Dosage 00:00:00 [facility] Hep B, Adol or Pedi 2002 Completed Unive rsity of Dosage 00:00:00 [facility] Vital Signs Vital Name Observation Time Observation Value Comments Source Systolic blood 2022-06-26 112 mm[Hg] University of pressure 16:53:00 [facility] Diastolic blood 2022-06-26 77 mm[Hg] University o f pressure 16:53:00 [facility] Heart rate 2022-06-26 72 /min University [facility] 16:53:00 [facility] [facility] Body temperature 2022-06-26 37.44 Vani University of 16:53:00 [facility] Respiratory rate 2022-06-26 16 /min University of 16:53:00 [facility] Body height 2022-06-26 162.6 cm University of 16:53:00 [facility] Body weight 2022-06-26 125.011 kg University of 16:53:00 [facility] BMI 2022-06-26 47.31 kg/m2 University of 16:53:00 [facility] Oxygen saturation 2022-06-26 97 /min University in Arterial blood 16:53:00 [facility] Pulse oximetry Branch Systolic blood 2022-06-18 102 mm[Hg] Negrita Jarvisol d - pressure 14:37:00 External Diastolic blood 2022-06-18 56 mm[Hg] Negrita Jarviso ld - pressure 14:37:00 External Heart rate 2022-06-18 82 /min Negrita Jarvisold - 14:37:00 External Body temperature 2022-06-18 36.17 Vani Negrita Jarvis old - 14:37:00 External Respiratory rate 2022-06-18 14 /min Negrita Jarvis old - 14:37:00 External Body height 2022-06-18 162.6 cm Negrita Neal - 14:37:00 External Body weight 2022-06-18 126.554 kg Negrita Neal - 14:37:00 External BMI 2022-06-18 47.89 kg/m2 Negrita Neal - 14:37:00 External Height 2019-08-25 162.56 CM 04:14:00 Weight 2019-08-25 117.48 KG 04:14:00 Height 2019-08-24 162.56 CM 10:59:00 Weight 2019-08-24 113.39 KG 10:59:00 Heart Rate 2020-12-20 87 /min Location: L [facility] 09:59:00 Brachial Artery; O2 SAT 2020-12-20 97 % Source: [facility] 09:59:00 Systolic blood 2020-12-20 124 mm[Hg] Location: SHARI [facility] pressure 09:59:00 Position: Sitting Diastolic blood 2020-12-20 82 mm[Hg] Location: LAKISHA; [facility] pressure 09:59:00 Position: Sitting Body height 2020-12-20 64 [in_us] [facility] 09:59:00 Weight 2020-12-20 291.1875 [lb_av] [facility] 09:59:00 Body mass index 2020-12-20 49.98 kg/m2 [facility] (BMI) [Ratio] 09:59:00 Body temperature 2020-12-20 96.9 [degF] Method: [facility] 09:59:00 Temporal Systolic blood 2020-11-05 99 mm[Hg] Location: RUE; [facility] pressure 10:37:00 Position: Sitting Diastolic blood 2020-11-05 65 mm[Hg] Location: RUE; [facility] pressure 10:37:00 Position: Sitting Body height 2020-11-05 166 cm [facility] 10:37:00 Weight 2020-11-05 129.2 kg [facility] 10:37:00 Body mass index 2020-11-05 46.89 kg/m2 [facility] (BMI) [Ratio] 10:37:00 Body temperature 2020-11-05 97 [degF] Method: [facility] 10:37:00 Tympanic Heart Rate 2020-11-05 64 /min Location: R [facility] 10:37:00 Brachial Artery; Procedures Procedure Date / Time Performed Performing Clinician [facility] e EXTERNAL PROVIDER 2022-01-14 05:01:00 Doctor Unassigned, No [facility] [place] RECORDS Name Medical Branch [Q] HEPATITIS PANEL, 2020-11-11 00:00:00 [facility] ACUTE W/REFLEX [QL] CMP W/EGFR 2020-11-11 00:00:00 [facility] [Q] NMDA RECEPTOR 2020-11-11 00:00:00 [facility] ANITBODY TEST [Q] NMDA RECEPTOR 2020-11-05 00:00:00 [facility] ANITBODY TEST [Q] HEPATITIS PANEL, 2020-11-05 00:00:00 [facility] ACUTE W/REFLEX EXCISION TOE NAIL 2019-08-25 00:00[facility] Plan of Care Planned Activity Planned Date Details Comments Source Diagnostic Test 2020-11-11 00:00:00 [Q] HEPATITIS PANEL, [facility] Pending ACUTE W/REFLEX [code = [Q] HEPATITIS PANEL, ACUTE W/REFLEX] Diagnostic Test 2020-11-11 00:00:00 [QL] CMP W/EGFR [code [facility] Pending = [QL] CMP W/EGFR] Diagnostic Test 2020-11-11 00:00:00 [Q] NMDA RECEPTOR [facility] Pending ANITBODY TEST [code = [Q] NMDA RECEPTOR ANITBODY TEST] Encounters Start End Encounter Admission Attending Care Care Encounter Source Date/Time Date/Time Type Type Clinicians Facility Department ID 2022-07-01 Outpatient [facility] [id number] [place] 15:01:13 [id number] [facility] 2022-06-18 Outpatient [facility] [id number] [place] 08:39:04 [id number] [facility] 2021-09-12 Outpatient JESSICA, [facility] [id number] [place] 15:10:55 [facility] 2022-11-09 2022-11-09 Outpatient JESSICA [facility] [id number] [place] 09:30:00 09:30:00 [facility] 2022-06-26 2022-06-26 Urgent GiovannylyndonShar gan [facility] 1.2.840.114 [id number] [facility] 10:40:00 11:00:00 Care Unknown, Attending [facility] 350.1.13.10 ity [facility] 4.2.7.2.686 Matthew as PEYMAN?BLEA [phone] [address] MEDICAL OFFICE BUILDING 2022-06-26 2022-06-26 Outpatient Dio COTE [facility] [id number] [facility] 10:40:00 10:40:00 SHAR itranjana [facility] 2022-06-24 2022-06-24 Outpatient NEGRITA MORALES [id number] Negrita 00:00:00 00:00:00 SULY Seybol d 2022-06-18 2022-06-18 Outpatient LAB90 NEGRITA KEATING [id number] Negrita 10:45:00 10:45:00 Sejuol rj 2022-06-18 2022-06-18 Outpatient NEGRITA MORALES [id number] Negrita 10:00:00 10:00:00 SULY Seybol d 2022-06-12 2022-06-12 Outpatient NEGRITA MORALES [id number] Negrita 10:15:00 10:15:00 SULY Seybol d 2022-03-04 2022-03-04 Telephone Team, [facility] SERGIO 1.2.840.114 [id number] Univers 00:00:00 00:00:00 Health AYLIN 350.1.13.10 it y [facility] 4.2.7.2.686 [place] [id number] [facility] [address] [place] 2022-02-05 2022-02-05 Outpatient R PHILLY [facility] [id number] Univers 08:30:00 08:30:00 ENOCH coleman [facility] 2022-01-29 2022-01-29 [facility]phone [facility] 1.2.840.114 [id number] [facility] 00:00:00 00:00:00 Enoch WILLIS 350.1.13.10 i ty of [facility] [place] [phone] Mo dical NAL [address] [place] [address] 2022-01-14 2022-01-14 Orders Doctor SERGIO 1.2.840.114 [id number] Univers 00:00:00 00:00:00 Only Unassigned, AYLIN 350.1.13.[address] [place] [facility] 4.2.7.2.686 Matthew as [phone] [facility] [address] [place] 2021-12-29 2021-12-29 Telephone Jessica [facility] 6410 1.2.840.114 [id number] [place] 00:00:00 00:00:00 Sergio POP 350.1.13.58 Health 9.2.7.2.686 [id number] 8 2021-12-08 2021-12-08 Telephone Vanna Lopez UTP 6410 1.2.840 .114 [id number] [place] 00:00:00 00:00:00 Vanna Lopez 350.1.13.58 Health 9.2.7.2.686 [id number] 8 2021-11-20 2021-11-20 [facility]phone [facility] 1.2.840.114 [id number] [facility] 00:00:00 00:00:00 Enoch WILLIS 350.1.13.10 i ty of [facility] 4.2.7.2.[place] [phone] Mo dical NAL [address] [place] [address] 2021-11-04 2021-11-04 Outpatient R PHILLY [facility] [id number] Univers 08:00:00 08:43:51 ENOCH coleman [facility] 2021-11-04 2021-11-04 Office Philly [facility] 1.2.845.936 [id number] Univers 08:00:00 08:43:51 Visit Enoch WILLIS 350.1.13.10 i ty of [place] [id number] [address] 2021-11-04 2021-11-04 Outpatient R PHILLY [facility] [id number] Univers 08:00:00 08:43:51 ENOCH coleman [facility] 2021-11-04 2021-11-04 Orders Doctor SERGIO 1.2.840.114 [id number] Univers 00:00:00 00:00:00 Only UnassAYLIN hansen 350.1.13.[address] [place] [facility] 4.2.7.2.686 Matthew as [phone] [facility] [address] [place] 2021-10-20 2021-10-20 Office MODESTA Lopez 6410 1.2.388.744 [id number] [place] 09:30:00 10:00:00 Visit Sergio POP 350.1.13.58 [facility] 9.2.7.2.686 [id number] 8 2021-10-06 2021-10-06 [facility] 1.2.375.039 [id number] Univers 00:00:00 00:00:00 Enoch WILLIS 350.1.13.10 i ty [place] [id number] [address] 2021-09-29 2021-09-29 Letter SERGIO Barksdale 1.2.840.114 [id number] Univers 00:00:00 00:00:00 (Out) Marina VIERA 350.1.13.[address] [facility] 4.2.7.2.686 Matthew as [phone] [facility] [address] [place] 2021-09-28 2021-09-28 Urgent Chari Reyes [facility] 1.2 .840.114 [id number] Univers 11:40:00 11:40:00 Rajani Phillips [facility] 350.1.13.10 ity of [place] 4.2.7.2.686 Matthew as PEYMAN?BLEA [phone] [facility] [address] [place] MEDICAL OFFICE [facility] 2021-09-28 2021-09-28 Outpatient R LISA [facility] [id number] Univers 11:40:00 11:33:39 SCHARI it y of [facility] 2021-09-15 2021-09-15 Outpatient [facility] [id number] Univers 10:32:07 23:59:00 SONIA ity [facility] 2021-09-15 2021-09-15 [facility] 1.2.840.114 [id number] Univers 10:32:07 23:59:00 Encounter [facility] 350.1.13.10 ity of [place] 4.2.7.2.686 Matthew as PEYMAN?BLEA [phone] [facility] 808 [facility] OFFICE [facility] 2021-09-15 2021-09-15 [facility] Henry Sonia [facility] 1.2.840.114 [id number] Univers 10:20:00 10:40:00 [facility] 350.1.13.10 ity of [place] 4.2.7.2.686 Matthew as PEYMAN?BLEA [phone] Mo adeel [facility] 370 [facility] OFFICE [facility] 2021-09-13 2021-09-13 Outpatient R KING [facility] [id number] Univers 17:20:00 17:39:01 TRACE ity [facility] 2021-09-13 2021-09-13 Nurse SERGIO Allen 1.2.840.114 [id number] Univers 00:00:00 00:00:00 Triage Olivia VIERA 350.1.13.10 it y of HOSPITAL 4.2.7.2.686 Matthew as [id number] [address] 2021-09-13 2021-09-13 Orders Doctor HILL 1.2.840.114 [id number] Univers 00:00:00 00:00:00 Only UnassignedAYLIN 350.1.13.[address] [place] [facility] 4.2.7.2.686 Matthew as [phone] [address] 2020-12-20 2020-12-20 Appointmen ALEX [facility] Neurology - [id number] [place] 10:00:00 10:00:00 t; Sujata FOX M.D. Medical a ns, NURIA, Center M.D. 2020-11-05 2020-11-05 AppointMODESTA Merino Pedi [id number] [place] 10:00:00 10:00:00 t; KILLIAN WEBER, Neurology Ph Magaly Duval M.D. 2020-09-25 2020-09-25 Outpatient R [facility] [id number] [facility] 15:30:00 15:30:00 ENOCH coleman [facility] 2020-09-25 2020-09-25 Telemedici [facility] 1..840.114 [id number] Univers 08:21:38 08:51:38 ne Visit Enoch Willis 350.1.13.10 ity of [place] [phone] [address] 2020-09-17 2020-09-17 Refill [facility] ..[id number] [id number] Univers 00:00:00 00:00:00 Enoch Willis 350.1.13.10 i ty of [place].2.[place] [phone] [address] 2020-09-06 2020-09-06 AppointMODESTA Waggoner [facility] [id number] [place] 08:00:00 08:00:00 t; RENETTA ALEGRE M.D. Physici SHADE, ans M.D. 2020-08-15 2020-08-15 Refcinthia [facility] 1..361.877 [id number] Univers 00:00:00 00:00:00 Enoch Willis 350.1.13.10 i [place] of [place]2.7.2.[place] [phone] Mo dical nal [address] [place] [address] 2020-08-11 2020-08-11 Refill [facility] 1.2.820.001 [id number] Univers 00:00:00 00:00:00 Enoch Willis 350.1.13.10 i [place] of [place]2.7.2.[place] [phone] Mo dicri nal [address] [place] [address] 2020-07-23 2020-07-23 Appointmen MODESTA LATIF [facility] [id number] [place] 10:30:00 10:30:00 t; ALDO LATIF P Magaly Clifford M.D. 2020-07-04 2020-07-04 Case [facility] 1.2.505.246 [id number] Univers 00:00:00 00:00:00 Management Enoch Willis 350.1.13.10 ity of [place].2.[place] [phone] [address] 2020-07-04 2020-07-04 Telephone [facility] 1.2.840.114 [id number] Univers 00:00:00 00:00:00 Enoch Willis 350.1.13.10 i ty of [place] 4[place]2.7.2.[place] [phone] [address] 2020-06-25 2020-06-25 Office Philly [facility] 1.2.051.252 [id number] Univers 13:26:11 15:22:55 Visit Enoch Willis 350.1.13.10 i ty of [place] 4[place]2.7.2.686 [place] [phone] [address] 2020-06-25 2020-06-25 Outpatient R PHILLY [facility] [id number] Univers 13:30:00 13:30:00 ENOCH coleman [facility] 2020-06-25 2020-06-25 Letter [facility] 1.2.234.997 [id number] Univers 00:00:00 00:00:00 (Out) Enohc Claude 350.1.13.10 i ty [place]2.[place].2.[place] [phone] [facility] 134 [facility] 2020-06-25 2020-06-25 Orders Doctor SERGIO 1.2.840.114 [id number] Univers 00:00:00 00:00:00 Only Unassigned, AYLIN 350.1.13.10 it[place] [facility] 4.2.7.2.686 Matthew as [id number] [facility] [address] [place] 2020-05-30 2020-05-30 Outpatient R [facility] [id number] Univers 13:00:00 13:00:00 ENOCH coleman [facility] 2020-05-22 2020-05-22 Telephone [facility] 1.2.840.11 [id number] Univers 00:00:00 00:00:00 , Blanquita Mas 350.1.13.10 it y of Pediatric 4.2.7.2.686 [facility] [id number] [facility] [address] [place] 2020-05-13 2020-05-13 Refill [facility] 1.2.366.510 [id number] Univers 00:00:00 00:00:00 Enoch Margarita 350.1.13.10 i ty [place].2.[place] [id number] [address] 2020-04-12 2020-04-12 Appointestella ALEGRE [facility] UTP [id number] [place] 09:20:00 09:20:00 t; RENETTA ALEGRE M.D. Physici SHADE, ans M.D. 2020-03-27 2020-03-27 Appointestella LOPEZ [facility] UTP [id number] [place] 09:30:00 09:30:00 t; Magaly HILL ans JOHN, M.D. 2020-02-14 2020-02-14 Orders Doctor SERGIO 1.2.840.114 [id number] Univers 00:00:00 00:00:00 Only Unassigned, AYLIN 350.1.13.10 it[place] [facility] 4.2.7.2.686 Matthew as [phone] [address] 2020-01-29 2020-01-29 Telemedici Enoch Fraga [facility] 1.2.840 .114 [id number] Univers 15:04:55 15:34:55 ne Visit Balaji Armas Cam [place] 350.1.13.10 ity of [place].2.[place] [phone] [facility] 134 [facility] 2020-01-29 2020-01-29 Outpatient R BALAJI ARMAS [facility] [id number] Univers 15:00:00 15:00:00 ity of [facility] 2020-01-09 2020-01-09 Telephone Pob1, Acute [facility] 1.2.840.114 [id number] Univers 00:00:00 00:00:00 [facility] 350.1.13.10 ity of [place] 4.2.7.2.686 Matthew as Professio [phone] [facility] [address] [place] [facility] 2020-01-05 2020-01-05 Urgent Pob1, Acute Care Clinic [facility] 1. 2.840.114 [id number] Univers 10:40:59 11:00:59 [facility] 350.1.13.10 ity of [place] 4.2.7.2.686 Matthew as Professio [phone] [address] [facility] 2020-01-05 2020-01-05 Outpatient R [facility] [id number] Univers 10:40:00 10:40:00 MADINA ity of [facility] 2019-12-20 2019-12-20 Orders Doctor SERGIO 1.2.840.114 [id number] Univers 00:00:00 00:00:00 Only Unassigned, AYLIN 350.1.13.[address] [place] [facility] 4.2.7.2.686 Matthew as [phone] [address] 2019-12-19 2019-12-19 Appointmen MODESTA ALLISON [facility] [id number] [place] 13:00:00 13:00:00 t; JENNY ALLISON M.D. Physici ANKUR, ans M.D. 2019-12-19 2019-12-19 [facility] Balaji Armas [facility] 1.2.063.789 [id number] Univers 00:00:00 00:00:00 Management Cam [place] 350.1.13.10 it[place] [phone] Mo dical nal 134 [facility] 2019-11-03 2019-11-03 Refill Balaji Armas [facility] 1.2.872.212 [id number] Univers 00:00:00 00:00:00 Cam [place] 350.1.13.10 i ty [place]2.[place].2.[place] [phone] Mo dical nal [address] [place] [address] 2019-10-04 2019-10-04 Appointmen MODESTA LOPEZ [facility] [id number] [place] 14:00:00 14:00:00 t; Magaly HILL mitesh Taylor M.D. 2019-09-18 2019-09-18 [facility] 7513 [facility] 15:05:00 11:49:00 2019-09-15 2019-09-15 Appointmen MODESTA ALEGRE [facility] [id number] [place] 16:00:00 16:00:00 t; RENETTA ALEGRE M.D. Physici SHADE, ans M.D. 2019-09-14 2019-09-14 [place] Balaji Armas [facility] 1.2.840.114 [id number] Univers 00:00:00 00:00:00 Cam [place] 350.1.13.10 i [place] [phone] Mo dical nal 134 [facility] 2019-09-07 2019-09-07 Refill Balaji Armas [facility] 1.2.494.513 [id number] Univers 00:00:00 00:00:00 Cam [place] 350.1.13.10 i ty [place]2.7.2.[place] [phone] Mo dical nal 134 [facility] 2019-08-25 2019-08-25 Outpatient Velasquez [facility] [id number] [facility] 04:11:00 06:20:00 CHANDAN [facility] 2019-08-04 2019-08-04 Orders Doctor SERGIO 1.2.840.114 [id number] [facility] 00:00:00 00:00:00 Only Unassigned, AYLIN 350.1.13.10 ity of [facility] 4.2.7.2.686 Matthew as [phone] [address] 2019-07-17 2019-07-17 MODESTA Carlin [id number] [place] 12:40:00 12:40:00 t; JOSUE ENCINAS Phys ici MONISHA, M.D. ans M.D. 2019-07-05 2019-07-05 MODESTA Lees [id number] [place] 08:30:00 08:30:00 t; Magaly HILL ans JOHN, M.D. 2019-06-20 2019-06-20 MODESTA Delcid [id number] [place] 13:00:00 13:00:00 t; JENNY ALLISON M.D. Physici ANKUR, ans M.D. 2019-06-01 2019-06-01 Outpatient [facility] [id number] [facility] 07:34:00 07:34:00 2019-04-03 2019-04-03 MODESTA Lees [id number] [place] 09:00:00 09:00:00 t; Magaly HILL ans JOHN, M.D. 2019-03-24 2019-03-24 Case Balaji Armas [facility] 1.2.736.642 [id number] [facility] 00:00:00 00:00:00 Management Cam [place] 350.1.13.10 ity [place] [phone] Mo dical [facility] 134 [facility] 2019-03-17 2019-03-17 MODESTA Moura [id number] [place] 13:40:00 13:40:00 t; RENETTA ALEGRE M.D. Physici SHADE, ans M.D. 2019-03-13 2019-03-13 MODESTA Carlin [id number] [place] 14:10:00 14:10:00 t; JOSUE ENCINAS Phys ici MONISHA, M.D. ans M.D. 2019-02-13 2019-02-13 [facility] ENCINAS [facility] [id number] [place] 12:40:00 12:40:00 t; JOSUE ENCINAS Phys ici MONISHA, M.D. ans M.D. 2018-12-26 2018-12-26 AppointMODESTA Hughes [facility] [id number] [place] 11:00:00 11:00:00 t; Magaly HILL ans JOHN, M.D. 2018-12-20 2018-12-20 [facility] MODESTA ALLISON [facility] [id number] [place] 14:00:00 14:00:00 t; JENNY ALLISON M.D. Physici ANKUR, ans M.D. 2018-11-18 2018-11-18 [facility] [id number] [place] 10:40:00 10:40:00 t; RENETTA ALEGRE M.D. Physici SHADE, ans M.D. 2018-11-18 2018-11-18 [facility] MODESTA ALEGRE UTP [id number] [place] 10:30:00 10:30:00 t; RENETTA ALEGRE M.D. Physici SHADE, ans M.D. 2018-11-08 2018-11-08 AppointMODESTA Bullock [facility] [id number] [place] 13:10:00 13:10:00 t; JOSUE ENCINAS Phys ici MONISHA, M.D. ans M.D. Results Test Description Test Time Test Comments Results Result Comments Source [Q] HEPATITIS PANEL, ACUTE W/REFLEX 2020-11-05 12:37:00 Test Item Value Reference Range Interpretation Comme nts HEPATITIS NON-REACTIVE NON-REACTIVE N For additional information, please refer to A IGM http://educatio n.[employer].com/faq/RWF357 (test code (This link is b eing provided for = informational/e ducational purposes only.) HEPATITIS A IGM) HEPATITIS NON-REACTIVE NON-REACTIVE N B SURFACE ANTIGEN; Normal (test code = 5195-3) HEPATITIS NON-REACTIVE NON-REACTIVE N B CORE ANTIBODY (IGM); Normal (test code = 81216-4) HEPATITIS NON-REACTIVE NON-REACTIVE N C ANTIBODY; Normal (test code = 59856-2) SIGNAL TO 0.01 <1.00 N HCV antibody wa s non-reactive. There is no CUT-OFF laboratory evid ence of HCV infection. In most (test code cases, no furth er action is required. However,if = SIGNAL recent HCV expo sure is suspected, a test for HCV TO RNA(test code 3 5645) is suggested. For additional CUT-OFF) information ple ase refer tohttp://educat ion.Powervation/faq/FAQ22 v1(This link is being provided for informational/e ducational purposes only.) [facility][QL] CMP W/CGSW6064-49-28 12:37:00 Test Item Value Reference Range Interpretation Comments GLUCOSE; Normal 119 mg/dl 65-139 N Non-fasting (test code = reference inter osiris 1547-9) UREA NITROGEN (BUN) 17 mg/dl 7-20 N (test code = UREA NITROGEN (BUN)) CREATININE (test 0.70 mg/dl 0.50-1.00 N code = CREATININE) eGFR NON-AFR. 126 {ML/MIN/1.7} See_Comment N [Automate d ALGERIAN (test code message] The = eGFR NON-AFR. system which ALGERIAN) generated this result transmit micheal reference range : > OR = 60. The reference range was not used to interpret this result as normal/abnormal . eGFR 147 {ML/MIN/1.7} See_Comment N [Automated ALGERIAN (test code message] The = eGFR system which ALGERIAN) generated this result transmit micheal reference range : > OR = 60. The reference range was not used to interpret this result as normal/abnormal . BUN/CREATININE NOT APPLICABLE 6-22 RATIO (test code = BUN/CREATININE RATIO) SODIUM (test code = 139 mmol/L 135-146 N SODIUM) POTASSIUM (test 4.4 mmol/L 3.8-5.1 N code = POTASSIUM) CHLORIDE (test code 104 mmol/L 98-110 N = CHLORIDE) CARBON DIOXIDE 27 mmol/L 20-32 N (test code = CARBON DIOXIDE) CALCIUM (test code 8.9 mg/dl 8.9-10.4 N = CALCIUM) PROTEIN, TOTAL 6.0 g/dl 6.3-8.2 (test code = PROTEIN, TOTAL) ALBUMIN (test code 3.7 g/dl 3.6-5.1 N = ALBUMIN) GLOBULIN (test code 2.3 {G/DL CALC} 2.0-3.8 N = GLOBULIN) ALBUMIN/GLOBULIN 1.6 {CALC} 1.0-2.5 N RATIO (test code = ALBUMIN/GLOBULIN RATIO) BILIRUBIN, TOTAL; 0.2 mg/dl 0.2-1.1 N Normal (test code = 12331-9) ALKALINE 112 u/l 36-128 N PHOSPHATASE (test code = ALKALINE PHOSPHATASE) AST; Below Low 10 u/l 12-32 Threshold (test code = 1916-6) ALT; Normal (test 13 u/l 5-32 N code = 1742-6) [facility][Q] NMDA RECEPTOR ANITBODY [id number] 12:37:00 Test Item Value Reference Interpretation Comments Range NMDA RECEPTOR AB See Comment NEGATIVEThi s test did not INTERPRETATION detect abnorm al levels of (test code = NMDA anti-NR1 a ntibodies. RECEPTOR AB INTERPRETATION) TECHNICAL RESULTS See Comment (test code = TECHNICAL RESULTS) --------- ---Interpretive Result Table --INTERPRETIVE RESULT: Negativ eTEST: [id number] AL RESULT: No abnormal levels of antibodies detected------- --- COMMENTS (test See Comment Comments: Thi s result does code = COMMENTS) not exclude a diagnosis of an autoimmuneetiol ogy for the neurological sy mptoms associated with paraneoplasticd isorder. Recommendations : Health care providers, [place] se contact the [facility] Client Services [facility] at if you wishto speak with a cl inical tanning consultant chacho lazaro this test result. Ot her testing available: [employer] recommends samantha tionaltesting, if not already performed. [facility] offerst[facility] antibody tests: anti-Hu, anti-Yo, anti-Zic4, anti -CV2,anti-Ma1, anti-Ta, anti-R i, anti-Recoverin, anti-VGCC, anti-VGKC,anti- Amphiphysin, anti-G-AChR, an ti-GAD65, anti-LGI1, and anti-CASPR2.Ple ase contact the [place] orvisit [place] for information iraida petit that may be appropriate bas ed on this individual's clinicalpresent ation. Background info rmation: Paraneoplastic neurological syndromes ordis orders (PNS or PND) are rare i mmune-mediated disorders resul tingfrom the damage to the n ervous system due to remote e ffects of a tumor(1, 2). PN D of the central nervous system may occur in associ ationwith either onconeur al antibodies directed agains t intracellularan tigens, or antibodies targ eted against neuronal surfac e antigens (1,3).Clinical features of PND may include ataxia, limbic or brainstemenceph alitis, sensory neuropa thy, subacute cerebellar degeneration,di zziness, nystagmus, dysp hagia, dysarthria, los s of muscle tone, lossof me eliana, vision problems, sleep disturbances, dementia, seizu res,and/or sensory loss in the limbs (4). In approxi mately 60% of PNDcases, neuro pathic symptoms preced e a tumor diagnosis (1). Some of thetumors relat ed to PND include small c ell lung cancer, ovarian teratomaand carcinoma, thym jean paul, lymphoma, breast cancer, and/or testicularcance r (2). PND may also include [place] mbert-Eaton myasthenic synd bud(LEMS), stiff person sy ndrome, encephalomyelit is, myasthenia gravis,neuromyo kiara, and opsoclonus-myoc lonus (4). However, these disorderscan also occur in i ndividuals without underly ing cancer.N-methyl -D-aspartate receptors (NMDA Rs) are ionotropic liga nd-gatedcation channels, which are thought to play a criti lucie role in centralnervous system (FURNACE DOOR TENDER) synaptic plasti [place] and signal transmis sammie (5).NMDARs (spe cifically NR1/NR2 heterod imers) have recently been s hown ariana a target antigen for antibodies in patients wit h encephalitis (6,7). The pred ominant features of thi s disorder include acuteps ychiatric syndromes, seiz ures, memory deficits, and hypoventilation (8, 9). Majority of pat ients having encephalitis as sociated withanti-NMDAR antibodies are young women (6, 7, 10). A few men andchildren have also been reported ( 8). Approximately 6 5% of femaleencephali tis patients with these anti bodies have a detectable tumo r,commonly a cystic ovarian teratoma (6). Since neurologi lucie symptomsoften p recede the detection of an occult malignancy, pat ientmonitoring is recommended, and a search for occult canc er should beconsidered. METHODS (test code See Comment A cell-ba sed assay (CBA) was = METHODS) used to detect antibodies by indirectimmunof luorescence test (IIFT) on a recombinant cell line expre ssingthe antigen. Limita tions of analysis: Cross -interfering antibodies may be presentin samples and yee ear as borderline or l ow positive results. Specim entype may affect sensitiv ity and specificity of this assay. Falsepositive o r false negative result s may occur rarely. All res ultsshould be interpreted in the context of clinical findin gs, relevantmedical history, and other ancillary laboratory data. REFERENCES (test See Comment 1. CHEYANNE Littlejohn, et al. (2006) code = REFERENCES) Semin Onc ol 33: 270-98. (PMID: 45643666 )2. JERROD Baird, et al. (201 1) Eur J Neurol 18: 19-e 3. (PMID: [id number])3. Ishan Barnett, et al. (2012) J Ne urol Neurosurg Psychiatry 83: 638-45. (PMID: 75478855)4. MR Megan, et al. (2010) Onco logist 15: 603-17. (PMID: 77091563)5. NEETU White, et al. (2007) Fiorella Rev Neurosci 8: 413-26. (PMID: 03171891 )6. Hope Ware, et al. (2008) L ancet Neurol 7: 327-40. (PMI D: [id number])7. Esequiel T, et a l. (2008) Neurology 70: 5 04-11. (PMID: 08652335)8. ILAN Plaza, et al. (2009) Jovita Neurol 66: 11-8. (PMID: 19 547300)9. Hope Ware, et a l. (2008) Lancet Neurol 7 : 1091-8. (PMID: [id number] )10. Gaviotaehusmann P, et al. (2009) Arch Neurol 66: 458-64. (PMID: [id number] ) Laboratory oversight provi ded by Corrine li M.D., Ph.D., [facility], [place] [facility] (CLIA# [id number]) Haleigh peresg performed at:[facility] [address] [address] A cell-based assay (CBA) was used to detect antibodies by indirectimmunofluorescence test (IIFT) on a recombinant cell line expressingthe antigen. Limitations of analysis: Cross-interfering antibodies may be presentin samples and appear as borderline or low positive results. Specimentype may affect sensitivity and specificity of this assay. Falsepositive or false negative results may occur rarely. All resultsshould be interpreted in the context of clinical findings, relevantmedical history, and other ancillary laboratory data.REPORT COMMENT:FASTING:NOUT PhysiciansPREGNANCY URINE MONOCLONALFB2019-08-25 12:09:00 Test Item Value Reference Range Interpretation Comments PREG UR (test code = PGU) NEGATIVE NEGATIVE
--- NOTE | 2022-07-03 21:48 | EDPHYS ---
Physician Documentation [facility] Name: Ciara Rebolledo Age: 21 yrs Sex: Female : 2000 Arrival Date: 07/03/2022 Time: 18:01 Bed DIS3 Private MD: ED Physician Burak Mann HPI: 07/03 21:43 This 21 yrs old Female presents to ER via Ambulatory with complaints of Sore jl9 Throat, cough, congestion. . 21:43 The patient presents with sore throat. The patient describes throat pain as dry. Onset: jl9 The symptoms/episode began/occurred 2 day(s) ago. Severity of symptoms: in the emergency department the symptoms a " 2" out of "10". Modifying factors: The symptoms are alleviated by nothing, the symptoms are aggravated by nothing. Associated signs and symptoms: Pertinent positives: cough, Sore throat. 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 - Social history:: Smoking status: Patient denies any tobacco usage or history of. ROS: 21:44 Constitutional: Negative for fever, chills, and weight loss, Eyes: Negative for injury, jl9 pain, redness, and discharge. 21:44 Neck: Negative for injury, pain, and swelling, Cardiovascular: Negative for chest pain, palpitations, and edema. 21:44 Abdomen/GI: Negative for abdominal pain, nausea, vomiting, diarrhea, and constipation, Back: Negative for injury and pain, : Negative for injury, bleeding, discharge, and swelling, MS/Extremity: Negative for injury and deformity, Skin: Negative for injury, rash, and discoloration, Neuro: Negative for headache, weakness, numbness, tingling, and seizure, Psych: Negative for depression, anxiety, suicide ideation, homicidal ideation, and hallucinations, Allergy/Immunology: Negative for hives, rash, and allergies, Endocrine: Negative for neck swelling, polydipsia, polyuria, polyphagia, and marked weight changes, Hematologic/Lymphatic: Negative for swollen nodes, abnormal bleeding, and unusual bruising. 21:44 ENT: Positive for sore throat. 21:44 Respiratory: Positive for cough. Exam: 21:44 Constitutional: This is a well developed, well nourished patient who is awake, alert, jl9 and in no acute distress. Head/Face: Normocephalic, atraumatic. Eyes: Pupils equal round and reactive to light, extra-ocular motions intact. Lids and lashes normal. Conjunctiva and sclera are non-icteric and not injected. Cornea within normal limits. Periorbital areas with no swelling, redness, or edema. 21:44 Neck: Trachea midline, no thyromegaly or masses palpated, and no cervical lymphadenopathy. Supple, full range of motion without nuchal rigidity, or vertebral point tenderness. No Meningismus. Chest/axilla: Normal chest wall appearance and motion. Nontender with no deformity. No lesions are appreciated. Cardiovascular: Regular rate and rhythm with a normal S1 and S2. No gallops, murmurs, or rubs. Normal PMI, no JVD. No pulse deficits. 21:44 Abdomen/GI: Soft, non-tender, with normal bowel sounds. No distension or tympany. No guarding or rebound. No evidence of tenderness throughout. Back: No spinal tenderness. No costovertebral tenderness. Full range of motion. Skin: Warm, dry with normal turgor. Normal color with no rashes, no lesions, and no evidence of cellulitis. MS/ Extremity: Pulses equal, no cyanosis. Neurovascular intact. Full, normal range of motion. Neuro: Awake and alert, GCS 15, oriented to person, place, time, and situation. Cranial nerves II-XII grossly intact. Motor strength 5/5 in all extremities. Sensory grossly intact. Cerebellar exam normal. Normal gait. 21:44 ENT: External ear(s): are unremarkable, Ear canal(s): are normal, TM's: are normal, Nose: is normal, Mouth: is normal, Posterior pharynx: erythema, that is mild. 21:44 Respiratory: the patient does not display signs of respiratory distress, Respirations: normal, Breath sounds: + upper airway congestion. Vital Signs: 18:50 BP 150 / 94; Pulse 84; Resp 15; Temp 98.6; Pulse Ox 100% ; Weight 124.74 kg; Height 5 vg1 ft. 4 in. (162.56 cm); Pain 6/10; 18:50 Body Mass Index 47.20 (124.74 kg, 162.56 cm) vg1 MDM: 18:58 Patient medically screened. jl9 21:45 Data reviewed: vital signs, nurses notes. Counseling: I had a detailed discussion with jl9 the patient and/or guardian regarding: the historical points, exam findings, and any diagnostic results supporting the discharge/admit diagnosis, lab results, the need for outpatient follow up, to return to the emergency department if symptoms worsen or persist or if there are any questions or concerns that arise at home. 07/03 18:14 Order name: Strep; Complete Time: 19:14 vg1 07/03 19:28 Order name: Throat Culture EDMS Administered Medications: No medications were administered Disposition Summary: 07/03/22 21:47 Discharge Ordered Location: Home jl9 Condition: Stable jl9 Diagnosis - Acute upper respiratory infection, unspecified jl9 Followup: jl9 - With: Private Physician - When: 1 - 2 days - Reason: Recheck today's complaints, Continuance of care, Re-evaluation by your physician Discharge Instructions: - Discharge Summary Sheet jl9 - Upper Respiratory Infection, Adult jl9 - Pharyngitis, Tgfc-se-Munn jl9 Forms: - Medication Reconciliation Form jl9 - Thank You Letter jl9 - Antibiotic Education jl9 - Prescription Opioid Use jl9 Prescriptions: - albuterol sulfate 90 mcg/actuation Inhalation HFA aerosol inhaler - inhale 2 puff by INHALATION route every 4-6 hours; 18 gram; Refills: 0, Product jl9 Selection Permitted - azithromycin 250 mg Oral tablet - take 2 tablet by ORAL route once daily for 1 day then 1 tablet (250 mg) by oral jl9 route once daily for 4 days; 6 tablet; Refills: 0, Product Selection Permitted Addendum: 07/05/2022 13:41 Co-signature as Attending Physician, Burak Mann MD I agree with the assessment and c stout plan of care. Signatures: Dispatcher [employer] EDBurak Barboza MD MD cha Garcia, Victoria, RN RN vg1 Woodrow Arce jl9 Corrections: (The following items were deleted from the chart) 07/03 18:53 18:51 Home Meds: Abilify Oral; vg1 vg1 1853 18:51 Home Meds: Celexa Oral; vg1 vg1
--- NOTE | 2022-07-03 21:48 | ER ---
Nurse's Notes [facility] Name: Ciara Rebolledo Age: 21 yrs Sex: Female : 2000 Arrival Date: 07/03/2022 Time: 18:01 Bed DIS3 Private MD: Diagnosis: Acute upper respiratory infection, unspecified Presentation: 07/03 18:50 Chief complaint: Patient states: cough, congestion, diarrhea x 2 days. Coronavirus vg1 screen: Vaccine status: Patient reports receiving the 2nd dose of the covid vaccine. Client denies travel out of the [place] in the last 14 days. Ebola Screen: Patient negative for fever greater than or equal to 101.5 degrees Fahrenheit, and additional compatible Ebola Virus Disease symptoms. Initial Sepsis Screen: Does the patient meet any 2 criteria? No. Patient's initial sepsis screen is negative. Does the patient have a suspected source of infection? No. Patient's initial sepsis screen is negative. Risk Assessment: Do you want to hurt yourself or someone else? Patient reports no desire to harm self or others. Onset of symptoms was July 01, 2022. 18:50 Method Of Arrival: Ambulatory vg1 18:50 Acuity: KRYSTAL 4 vg1 Triage Assessment: 18:51 General: Appears uncomfortable, Behavior is calm, cooperative. Pain: Complains of pain vg1 in throat Pain currently is 6 out of 10 on a pain scale. EENT: Throat is reddened has patchy exudate. Respiratory: Airway is patent Respiratory effort is even, unlabored. 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 - Social history:: Smoking status: Patient denies any tobacco usage or history of. Screenin:52 Abuse screen: Denies threats or abuse. Denies injuries from another. Nutritional ld1 screening: No deficits noted. Tuberculosis screening: No symptoms or risk factors identified. Fall Risk None identified. Assessment: 21:52 Reassessment: See triage assessment. ld1 21:53 Respiratory: Airway is patent Respiratory effort is even, unlabored, Breath sounds are ld1 clear. Vital Signs: 18:50 BP 150 / 94; Pulse 84; Resp 15; Temp 98.6; Pulse Ox 100% ; Weight 124.74 kg; Height 5 vg1 ft. 4 in. (162.56 cm); Pain 6/10; 18:50 Body Mass Index 47.20 (124.74 kg, 162.56 cm) vg1 ED Course: 18:01 Patient arrived in ED. mr 18:51 Triage completed. vg1 18:51 Arm band placed on. vg1 18:57 Strep Sent. vg1 18:58 Woodrow Arce is PHCP. jl9 18:58 Burak Mann MD is Attending Physician. jl9 21:52 Ananya Ugalde, RN is Primary Nurse. ld1 21:52 Patient has correct armband on for positive identification. Adult w/ patient. Pulse ox ld1 on. NIBP on. Door closed. Noise minimized. Warm blanket given. 21:52 No provider procedures requiring assistance completed. Patient did not have IV access ld1 during this emergency room visit. Administered Medications: No medications were administered Medication: 21:52 VIS not applicable for this client. ld1 Outcome: 21:47 Discharge ordered by . jl9 21:53 Discharged to home ambulatory. ld1 21:53 Condition: stable 21:53 Discharge instructions given to patient, Instructed on discharge instructions, follow up and referral plans. Demonstrated understanding of instructions, follow-up care, medications, Prescriptions given X 2. 21:53 Patient left the ED. ld1 Signatures: Francine Santillan mr LiVianney, RN RN vg1 Ananya Ugalde, ZINA RN ld1 Woodrow Arce jl9 Corrections: (The following items were deleted from the chart) 18:53 18:51 Home Meds: Abilify Oral; vg1 vg1 18:53 18:51 Home Meds: Celexa Oral; vg1 vg1
[2022-07-03 22:52] VITALS: BP 150/94; TEMP 98.6; O2SAT 100
== END 2022-07-03 21:53 | disposition home or self-care (01) ==
LOC: ER 17:57
DX: J06.9 Acute upper respiratory infection, unspecified (principal); Z88.1 Allergy status to other antibiotic agents; Z88.2 Allergy status to sulfonamides
CPT/HCPCS: 87070; 87081; 99283

== ENCOUNTER 2022-09-08 11:39 | Emergency (ER) | payer BC ==
--- OUTSIDE RECORDS SUMMARY | 2022-09-08 11:46 | XMS REPORT | Continuity of Care Document ---
:2000 Author Organization [facility] t Address [address] [place] [address] Care Team Providers Name Role Phone Leilani Burger MD Primary Care Physician [phone] SERGIO LOPEZ Attending Clinician Unavailable ENOCH FRAGA Attending Clinician Unavailable SULY MORALES Attending Clinician Unavailable LAMBERTO RUANO Attending Clinician Unavailable LAB90 Attending Clinician Unavailable Shar Moreno Attending Clinician Unknown, Attending Attending Clinician Unavailable SHAR BREEN Attending Clinician Unavailable Team, [facility] Attending Clinician UnavailEnoch Ledesma PA-C Attending Clinician Doctor Unassigned, [place] Attending Clinician Unavailable Vanna Lopez LVN Attending Clinician Unavailable Apolonia IZAGUIRRE, Marina Bateman Attending Clinician Unavailable Chari Morataya Attending Clinician [phone] Rajani Frank Attending Clinician CHARI REYES [...] Attending Clinician BALAJI ARMAS Attending Clinician Unavailable [facility]3] Care [facility] Attending Clinician Unavailable Madina Dawson Attending Clinician MADINA RENEE Attending Clinician Unavailable JENNY ALLISON M.D. Attending Clinician Unavailable DR CHANDAN MCKEON Attending Clinician Unavailable JOSUE ENCINAS M.D. 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 Dr. Pacheco PTSD PTSD Disease Active Univers (post-trau (post-trau 01-25 it y of matic matic 00:00: [place] stress stress 00 Medical disorder) disorder) Bran ch Anxiety Anxiety Disease Active Univers 01-25 ity of 00:00: 00 Medical Branch Constipati Constipati Disease Active U nivers on on 01-25 ity of 00:00: 00 Medical Branch On oral On oral Disease Active Univers contracept contracept 09-15 it y of david pills david pills 00:00: [place] for for Medical non-contra non-contra Br anch ception ception indication indication Excessive Excessive Disease Active Uni vers or or 09-15 ity of frequent frequent 00:00: [place] menstruati menstruati 00 Me dical on on Branch Family Family Disease Active Univers history of history of 09-15 it y of stroke stroke 00:00: [place] 00 Medical Branch Epilepsy Epilepsy Problem Active [...] HOPRIM 2-20 ity of DS 00:00: [place] 00 Medical Branch Sulfamet Propensi Active Rash 2018-08 Univer s hoprim ty to 2-20 ity of Ds adverse 00:00: [place] reaction 00 Medical s Branch Sulfa Propensi Active Swelling 2017-08 Negrita Drugs ty to 1- Seybold adverse 00:00: - reaction 00 Externa s l TREE Food Active Med Rash 2016-08 Univers NUTS 0-18 ity of 00:00: [place] 00 Medical Branch Tree Propensi Active Rash 2016-08 Univers Nuts ty to 0-18 ity of adverse 00:00: [place] reaction 00 Medical [facility] Bactrim DA Active Unknown Rash [facility] Tree Nut FA Active Severe Swelling of [facility] Bactrim Allergy Active [facility] to drug Physici (finding ans ) Lidocain Allergy Active UT e HCl to drug Physici SOLN (finding ans ) Nuts Allergy Active [facility] to Physici substanc ans e (finding ) Family History Family Member Diagnosis Comments Start [...] Start Date Stop Date Quantity Comments Source Alcohol intake 2022-08-21 2022-08-21 Lifetime Negrita Perla bold - 00:00:00 00:00:00 non-drinker External (finding) Exposure to 2022-06-16 2022-06-26 Not sure [facility] SARS-CoV-2 00:00:00 10:45:00 [facility] (event) Branch Education 2022-06-18 2022-06-18 16 Negrita Neal - 00:00:00 00:00:00 External Tobacco use and 2022-06-18 2022-06-18 Smokeless tobacco Zeke suero Seybold - exposure 00:00:00 00:00:00 non-user External Tobacco Comment 2016-12-10 2016-12-10 Denies smoking Unive rsity of 00:00:00 00:00:00 exposure [facility] Sex Assigned At [birth year] F Negrita Anaya ybromeo - 00:00:00 00:00:00 External Smoking Status Start Date Stop Date Source Tobacco smoking consumption unknown [facility] Never smoked tobacco Negrita Jarvis old - External Medications Ordered Filled Start Stop Current Ordering Indication Dosage Frequency Signature Comments Components Source Medication Medication Date Date Medication? Clinician (SIG) Name Name Fluconazole Yes [id number] 150mg Take 1 Negrita 150 MG oral 08-24 tablet Seybol d Tablet 00:00: (150 mg - 00 total) by Externa mouth l twice a week Polyethylen Yes Take by Dalton anayay e Glycol 08-21 mouth Seybold 3350 09:48: - (MIRALAX 18 Externa OR) l Nitrofurant Yes [id number] 100mg Take 1 Negrita oin Monohyd 08-21 capsule Seybo ld Macro 00:00: (100 mg - (Macrobid) 00 total) by Exte rna 100 MG oral mouth 2 l Capsule times daily Nystatin-Tr Yes [id number] Apply to Negrita iamcinolone 08-21 volva Seybold [id number] 00:00: twice a - UNIT/GM-% 00 day for 3 Exter na apply days l externally Cream Secnidazole 2022- Yes [id number] 1{dose} Take 1 Negrita (Solosec) 2 08-21 Dose by Seyb old g oral Pack 00:00: 05:59 mouth once - 00 :00 for 1 dose Externa l Hydrocortis 2022- No [id number] Apply 1 Negrita one 08-21- applicatio Seybold (Monistat 00:00: 00:00 n - Soothing 00 :00 topically 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 promethazin 2021-08- Yes [id number] 5mL Take 5 mL Univers e-dextromet 08-26 11-19 by mouth 4 i ty of horphan 00:00: 05:59 (four) [place] 6.25-15 00 :00 times Medical mg/5 mL daily for Branch syrup 7 days. predniSONE 2021-08- Yes [id number] 40mg Take 2 Univers 20 mg 08-26 11-17 tablets by ity of tablet 00:00: 05:59 mouth in [place] 00 :00 the [facility] for 5 days. Ethynodiol 2021-08- No 1{tbl} Take 1 Ke lsey Diac-Eth 08-18- tablet by Seybo ld Estradiol 10:14: 00:00 mouth - 1-35 MG-MCG 49 :00 daily Externa oral Tablet l Polyethylen 2021-08 Yes Take by Dalton sey e Glycol 1-03 mouth Seybold 3350 09:45: - (MIRALAX 56 Externa OR) l Levocetiriz 2021-08 Yes [id number] 5mg Take 1 Negrita ine 1-03 tablet (5 Seybold Dihydrochlo 00:00: mg total) - ride 5 MG 00 by mouth 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 oral Tablet every day l at 5:00 PM Levocetiriz 2021-08 Yes [id number] 5mg Take 1 Negrita ine 1-03 tablet (5 Seybold Dihydrochlo 00:00: mg total) - ride 5 MG 00 by mouth 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 oral Tablet every day l at 5:00 PM Amoxicillin 2021-08 Yes Negrita 875 MG oral 0-27 Seybold Tablet 00:00: - 00 Externa l Amoxicillin 2021-08- No Kelse y 875 MG oral 0-27 01-06 Seybold Tablet 00:00: 00:00 - 00 :00 Externa l Estarylla Yes 1{tbl} Take 1 Yuli ey 0.25-35 9-10 tablet by Seybold MG-MCG oral 00:00: mouth - Tablet 00 daily Externa l Estarylla Yes 1{tbl} Take 1 Yuli ey 0.25-35 9-10 tablet by Seybold MG-MCG oral 00:00: mouth - Tablet 00 daily Externa l venlafaxine Yes 37.5mg Take 37.5 UT XR 4-22 mg by [facility] (Effexor-XR 00:00: mouth 1 ) 37.5 MG 00 (one) time 24 hr each day capsule in the morning. Adderall XR Yes 5mg Take 5 mg U T 5 MG 24 hr 3-29 by mouth 1 Hea lth capsule 00:00: (one) time 00 each day in the morning. norgestimat Yes [id number] 1{tbl} Take 1 Univers e-ethinyl 3-22 tablet by ity o f estradioL 00:00: mouth [place] (ESTARYLLA) 00 daily. Medica l 0.25-35 Branch mg-mcg per tablet norgestimat Yes [id number] 1{tbl} Take 1 Univers e-ethinyl 3-22 tablet by ity o f estradioL 00:00: mouth [place] (ESTARYLLA) 00 daily. Medica l 0.25-35 Branch mg-mcg per tablet norgestimat Yes [id number] 1{tbl} Take 1 Univers e-ethinyl 3-22 tablet by ity o f estradioL 00:00: mouth [place] (ESTARYLLA) 00 daily. Medica l 0.25-35 Branch mg-mcg per tablet norgestimat Yes [id number] 1{tbl} Take 1 Univers e-ethinyl 3-22 tablet by ity o f estradioL 00:00: mouth [place] (ESTARYLLA) 00 daily. Medica l 0.25-35 Branch mg-mcg per tablet norgestimat 2021-0 Yes [id number] 1{tbl} Take 1 Univers e-ethinyl 3-22 tablet by ity o f estradioL 00:00: mouth [place] (ESTARYLLA) 00 daily. Medica l 0.25-35 Branch mg-mcg per tablet ethynodiol- 2021-0 Yes TAKE 1 UT ethinyl 3-07 TABLET Health estradiol 10:10: DAILY. (Kelnor 01 ) 1-35 MG-MCG tablet levocetiriz 0 Yes 5mg 5 mg. UT ine (Xyzal -07 Health Allergy 10:10: 24HR) 5 MG 01 tablet azithromyci 0 Yes 500mg QD Take 500 U T n 3-03 mg by [facility] (Zithromax) 00:00: mouth 1 500 MG 00 (one) time tablet each day. TAKE 1 TABLET BY MOUTH EVERY DAY FOR 7 DAYS dexamethaso 2021-0 Yes 2mg Q.5D Take 2 mg U T ne 3-03 by mouth 2 Health (Decadron) 00:00: (two) 2 MG tablet 00 times a day. for 10 days gabapentin 0 Yes TAKE 1 UT (Neurontin) 3-03 CAPSULE BY He alth 100 MG 00:00: MOUTH capsule 00 TWICE A DAY FOR 15 DAYS pantoprazol 2021-0 Yes UT e 3-03 Health (ProtoNix) 00:00: 40 MG EC 00 tablet pantoprazol 2021-0 Yes Univer s e 40 mg EC 3-03 ity of tablet 00:00: [place] [facility] gabapentin 2021-0 Yes Univers 100 mg 3-03 ity of capsule 00:00: [place] [facility] dexAMETHaso 2021-0 Yes Univer s ne 2 mg 3-03 ity of tablet 00:00: [place] [facility] azithromyci 2021-0 Yes Univer s n 500 mg 3-03 ity of tablet 00:00: [place] [facility] pantoprazol 2021-0 Yes Univer s e 40 mg EC 3-03 ity of tablet 00:00: [place] [facility] gabapentin 2021-0 Yes Univers 100 mg 3-03 ity of capsule 00:00: [place] [facility] dexAMETHaso 202-0 Yes Univer s ne 2 mg 3-03 ity of tablet 00:00: [place] [facility] azithromyci 2021-0 Yes Univer s n 500 mg 3-03 ity of tablet 00:00: [place] [address] Medical Branch pantoprazol 202-0 Yes Univer s e 40 mg EC 3-03 ity of tablet 00:00: [place] [address] Medical Branch gabapentin 2022-0 Yes Univers 100 mg 3-03 ity of capsule 00:00: [place] [facility] dexAMETHaso 2021-0 Yes Univer s ne 2 mg 3-03 ity of tablet 00:00: [place] [facility] azithromyci 2021-0 Yes Univer s n 500 mg 3-03 ity of tablet 00:00: [place] [address] Medical Branch pantoprazol 2021-0 Yes Univer s e 40 mg EC 3-03 ity of tablet 00:00: [place] [address] Medical Branch gabapentin 2-0 Yes Univers 100 mg 3-03 ity of capsule 00:00: [place] [address] Medical Branch dexAMETHaso 2021-0 Yes Univer s ne 2 mg 3-03 ity of tablet 00:00: [place] [address] Medical Branch azithromyci 2021-0 Yes Univer s n 500 mg 3-03 ity of tablet 00:00: [place] [address] Medical Branch pantoprazol 2021-0 Yes Univer s e 40 mg EC 3-03 ity of tablet 00:00: [place] [address] Medical Branch gabapentin 2-0 Yes Univers 100 mg 3-03 ity of capsule 00:00: [place] [address] Medical Branch dexAMETHaso 2021-0 Yes Univer s ne 2 mg 3-03 ity of tablet 00:00: [place] [address] Medical Branch azithromyci 2021-0 Yes Univer s n 500 mg 3-03 ity of tablet 00:00: [place] [address] Medical Branch Albuterol-I 0 Yes 1 VIAL VIA Negrita pratropium 2-25 NEBULIZER Seyb old 0.5-2.5 (3) 00:00: NEEDED - MG/3ML 00 INHALATION Externa inhalation EVERY 6 l Solution HRS 30 DAYS Albuterol-I 0 Yes 1 VIAL VIA Negrita pratropium 2-25 NEBULIZER Seyb old 0.5-2.5 (3) 00:00: NEEDED - MG/3ML 00 INHALATION Externa inhalation EVERY 6 l Solution HRS 30 DAYS ipratropium Yes 1 VIAL VIA Univers -albuteroL 2-25 NEBULIZER ity of 0.5 mg-3 00:00: [place]ED [place] mg(2.5 mg 00 INHALATION Medi lucie base)/3 mL EVERY 6 Branch nebulizer HRS 30 solution DAYS ipratropium Yes 1 VIAL VIA Univers -albuteroL 2-25 NEBULIZER ity of 0.5 mg-3 00:00: NEEDED [place] mg(2.5 mg 00 INHALATION Medi lucie base)/3 mL EVERY 6 Branch nebulizer HRS 30 solution DAYS ipratropium Yes 1 VIAL VIA Univers -albuteroL 2-25 NEBULIZER ity of 0.5 mg-3 00:00: NEEDED [place] mg(2.5 mg 00 INHALATION Medi lucie base)/3 mL EVERY 6 Branch nebulizer HRS 30 solution DAYS ipratropium Yes 1 VIAL VIA Univers -albuteroL 2-25 NEBULIZER ity of 0.5 mg-3 00:00: NEEDED [place] mg(2.5 mg 00 INHALATION Medi lucie base)/3 mL EVERY 6 Branch nebulizer HRS 30 solution DAYS ipratropium Yes 1 VIAL VIA Univers -albuteroL 2-25 NEBULIZER ity of 0.5 mg-3 00:00: NEEDED [place] mg(2.5 mg 00 INHALATION Medi lucie base)/3 mL EVERY 6 Branch nebulizer HRS 30 solution DAYS Montelukast Yes 10mg Take 10 mg Negrita (SINGULAIR) 2-17 by mouth Seyb old 10 MG oral 00:00: daily - Tablet 00 Externa tablet l Montelukast Yes 10mg Take 10 mg Negrita (SINGULAIR) 2-17 by mouth Seyb old 10 MG oral 00:00: daily - Tablet 00 Externa tablet l montelukast Yes 10mg QD Take 10 mg UT (Singulair) 2-17 by mouth 1 He alth 10 MG 00:00: (one) time tablet 00 each day. Escitalopra 2022-0 Yes 20mg Take 20 mg Negrita m Oxalate 2-15 by mouth Seybol d 20 MG oral 00:00: daily - Tablet 00 Externa l Escitalopra 0 Yes 20mg Take 20 mg [place] m Oxalate 2-15 by mouth Seybol d 20 MG oral 00:00: daily - Tablet 00 Externa l escitalopra 0 Yes 20mg Take 20 mg Univers m oxalate 2-15 by mouth ity of 20 mg 00:00: daily. [place] tablet 00 [facility] Branch escitalopra Yes 20mg Take 20 mg Univers m oxalate 2-15 by mouth ity of 20 mg 00:00: daily. [place] tablet 00 [facility] Branch escitalopra Yes 20mg Take 20 mg Univers m oxalate 2-15 by mouth ity of 20 mg 00:00: daily. [place] tablet 00 [facility] Branch escitalopra Yes 20mg Take 20 mg Univers m oxalate 2-15 by mouth ity of 20 mg 00:00: daily. [place] tablet 00 [facility] Branch escitalopra Yes 20mg Take 20 mg Univers m oxalate 2-15 by mouth ity of 20 mg 00:00: daily. [place] tablet 00 [facility] Branch vitamin B Yes Take by Unive rs complex (B 2-13 mouth. ity of COMPLEX-VIT 11:08: [place] GARNETT B12 01 Medical ORAL) Branch Magnesium 0 Yes Take by Unive rs Amino Acid 2-13 mouth. ity of Chelate 100 11:08: [place] mg Tab 01 Medical Branch vitamin B 0 Yes Take by Unive rs complex (B 2-13 mouth. ity of COMPLEX-VIT 11:08: [place] GARNETT B12 01 Medical ORAL) Branch Magnesium 0 Yes Take by Unive rs Amino Acid 2-13 mouth. ity of Chelate 100 11:08: [place] mg Tab 01 Medical Branch vitamin B 2021-0 Yes Take by Unive rs complex (B 2-13 mouth. ity of COMPLEX-VIT 11:08: [place] GARNETT B12 01 Medical ORAL) Branch Magnesium 0 Yes Take by Unive rs Amino Acid [...] [place] mg Tab 01 Medical Branch benzonatate Yes TAKE 2 UT (Tessalon) 1-31 CAPSULES Healt h 100 MG 00:00: BY MOUTH capsule 00 EVERY 8 (EIGHT) HOURS NEEDED FOR COUGH. benzonatate Yes [id number] 200mg Take 2 Univers 100 mg 1-31 capsules ity of capsule 00:00: by mouth [place] 00 every 8 Medical (eight) Branch hours as needed for Cough. budesonide- Yes [id number] 2{puff} Inhale 2 Univers formoteroL 1-31 Puffs 2 ity of (SYMBICORT) 00:00: (two) [place] 160-4.5 00 times Medical mcg/actuati daily. Branch on inhaler benzonatate Yes [id number] 200mg Take 2 Univers 100 mg 1-31 capsules ity of capsule 00:00: by mouth [place] 00 every 8 Medical (eight) Branch hours as needed for Cough. budesonide- 2021-0 Yes [id number] 2{puff} Inhale 2 Univers formoteroL 1-31 Puffs 2 ity of (SYMBICORT) 00:00: (two) [place] 160-4.5 00 times Medical mcg/actuati daily. Branch on inhaler benzonatate 2021- Yes [id number] 200mg Take 2 Univers 100 mg 1-31 capsules ity of capsule 00:00: by mouth [place] 00 every 8 Medical (eight) Branch hours as needed for Cough. budesonide- 2021-0 Yes [id number] 2{puff} Inhale 2 Univers formoteroL 1-31 Puffs 2 ity of (SYMBICORT) 00:00: (two) [place] 160-4.5 00 times Medical mcg/actuati daily. Branch on inhaler benzonatate Yes [id number] 200mg Take 2 Univers 100 mg 1-31 capsules ity of capsule 00:00: by mouth [place] 00 every 8 Medical (eight) Branch hours as needed for Cough. budesonide- Yes [id number] 2{puff} Inhale 2 Univers formoteroL 1-31 Puffs 2 ity of (SYMBICORT) 00:00: (two) [place] 160-4.5 00 times Medical mcg/actuati daily. Branch on inhaler benzonatate Yes [id number] 200mg Take 2 Univers 100 mg 1-31 capsules ity of capsule 00:00: by mouth [place] 00 every 8 Medical (eight) Branch hours as needed for Cough. budesonide- Yes [id number] 2{puff} Inhale 2 Univers formoteroL 1-31 Puffs 2 ity of (SYMBICORT) 00:00: (two) [place] 160-4.5 00 times Medical mcg/actuati daily. Branch on inhaler OLANZapine 2020-08 Yes Univers 2.5 mg 2-29 ity of tablet 00:00: [place] 00 Medical Branch OLANZapine 2020- Yes Univers 2.5 mg 2-29 ity of tablet 00:00: [place] 00 Medical Branch OLANZapine 2020- Yes Univers 2.5 mg 2-29 ity of tablet 00:00: [place] 00 Medical Branch OLANZapine 2020- Yes Univers 2.5 mg 2-29 ity of tablet 00:00: [place] 00 Medical Branch OLANZapine 2020- Yes Univers 2.5 mg 2-29 ity of tablet 00:00: [place] 00 Medical Branch polyethylen 2019- Yes Take by Uni vers e glycol 1-10 mouth. ity of 3350 14:17: [place] (MIRALAX 10 Medical ORAL) Branch levocetiriz 2019- Yes 5mg Take 5 mg U nivers ine (XYZAL) 1-10 by mouth ity of 5 mg tablet 14:17: every [place] 10 evening. Medical Branch polyethylen 2019- Yes Take by Uni vers e glycol 1-10 mouth. ity of 3350 14:17: [place] (MIRALAX 10 Medical ORAL) Branch levocetiriz 2019- Yes 5mg Take 5 mg U nivers ine (XYZAL) 1-10 by mouth ity of 5 mg tablet 14:17: every [place] 10 evening. Medical Branch polyethylen 2019-08 Yes Take by Uni vers e glycol 1-10 mouth. ity of 3350 14:17: [place] (MIRALAX 10 Medical ORAL) Branch levocetiriz 2019-08 Yes 5mg Take 5 mg U nivers ine (XYZAL) 1-10 by mouth ity of 5 mg tablet 14:17: every [place] 10 evening. Medical Branch polyethylen 2019-08 Yes Take by Uni vers e glycol 1-10 mouth. ity of 3350 14:17: [place] (MIRALAX 10 Medical ORAL) Branch levocetiriz 2019-08 Yes 5mg Take 5 mg U nivers ine (XYZAL) 1-10 by mouth ity of 5 mg tablet 14:17: every [place] 10 evening. Medical Branch polyethylen 2019-08 Yes Take by Uni vers e glycol 1-10 mouth. ity of 3350 14:17: [place] (MIRALAX 10 Medical ORAL) Branch levocetiriz 2019-08 Yes 5mg Take 5 mg U nivers ine (XYZAL) 1-10 by mouth ity of 5 mg tablet 14:17: every [place] 10 evening. Medical Branch busPIRone 5 2019-08 Yes 5mg Take 5 mg U nivers mg tablet 0-21 by mouth 2 ity of 00:00: (two) [place] 00 times Medical daily. Branch busPIRone 5 2019-08 Yes 5mg Take 5 mg U nivers mg tablet 0-21 by mouth 2 ity of 00:00: (two) [place] 00 times Medical daily. Branch busPIRone 5 2019-08 Yes 5mg Take 5 mg U nivers mg tablet 0-21 by mouth 2 ity of 00:00: (two) [place] 00 times Medical daily. Branch busPIRone 5 2019-08 Yes 5mg Take 5 mg U nivers mg tablet 0-21 by mouth 2 ity of 00:00: (two) [place] 00 times Medical daily. Branch busPIRone 5 2019-08 Yes 5mg Take 5 mg U nivers mg tablet 0-21 by mouth 2 ity of 00:00: (two) [place] 00 times Medical daily. Branch albuterol Yes [id number] 2.5mg Inhale 3 Univers 2.5 mg /3 5-22 mL every 4 ity of mL (0.083 00:00: (four) [place] %) 00 hours as Medical nebulizer needed for Bran ch solution Wheezing, Shortness of Breath, Bronchospa sm or Chest tightness. albuterol 2020-0 Yes [id number] 2.5mg Inhale 3 Univers 2.5 mg /3 5-22 mL every 4 ity of mL (0.083 00:00: (four) [place] %) 00 hours as Medical nebulizer needed for Bran ch solution Wheezing, Shortness of Breath, Bronchospa sm or Chest tightness. albuterol 2020-0 Yes [id number] 2.5mg Inhale 3 Univers 2.5 mg /3 5-22 mL every 4 ity of mL (0.083 00:00: (four) [place] %) 00 hours as Medical nebulizer needed for Bran ch solution Wheezing, Shortness of Breath, Bronchospa sm or Chest tightness. albuterol 2020-0 Yes [id number] 2.5mg Inhale 3 Univers 2.5 mg /3 5-22 mL every 4 ity of mL (0.083 00:00: (four) [place] %) 00 hours as Medical nebulizer needed for Bran ch solution Wheezing, Shortness of Breath, Bronchospa sm or Chest tightness. albuterol 2020-0 Yes [id number] 2.5mg Inhale 3 Univers 2.5 mg /3 5-22 mL every 4 ity of mL (0.083 00:00: (four) [place] %) 00 hours as Medical nebulizer needed for Bran ch solution Wheezing, Shortness of Breath, Bronchospa sm or Chest tightness. Rituxan 100 Rituxan 100 2019-0 Yes KILLIAN Infuse [place] MG/10ML MG/10ML 2-19 GUS M.D. once every Physici Intravenous Intravenous 00:00: five ans Solution Solution 00 months. riTUXimab 2019-0 Yes Infuse UT (Rituxan) 2-19 once every Heal th 100 MG/10ML 00:00: five chemo 00 months. injection montelukast 2018-08 Yes [id number] TAKE 1 Univers 10 mg 1-11 TABLET BY ity of tablet 00:00: MOUTH [place] 00 EVERYDAY Medical AT BEDTIME Branch montelukast 2018-08 Yes [id number] TAKE 1 Univers 10 mg 1-11 TABLET BY ity of tablet 00:00: [facility]TH [facility] [id number] TAKE 1 Univers 10 mg 1-11 TABLET BY ity of tablet 00:00: MOUTH EVERYDAY Medical AT [facility] 2018-08 Yes [id number] TAKE 1 Univers 10 mg 1-11 TABLET BY ity of tablet 00:00: MOUTH EVERYDAY Medical AT [facility] 2018-08 Yes [id number] TAKE 1 Univers 10 mg 1-11 TABLET BY ity of tablet 00:00: MOUTH EVERYDAY Medical AT [facility] 2018-08 Yes JENNY TAKE ONE UT m Oxalate m Oxalate 1-05 HUMAIRA TAB DAILY. Physici 20 MG Oral 20 MG Oral 00:00: M.D. a ns Tablet Tablet [facility] 2018-08 Yes 20mg 20 mg. UT m (Lexapro) 1-05 Health 20 MG 00:00: tablet [facility] 2018-08 Yes 10mg Take 10 mg Univers m oxalate 0-22 by mouth ity of 10 mg 00:00: [facility]. [place] [facility] Yes 10mg Take 10 mg Univers m oxalate 0-22 by mouth ity of 10 mg 00:00: daily. [place] [facility] Yes 10mg Take 10 mg Univers m oxalate 0-22 by mouth ity of 10 mg 00:00: daily. [place] [facility] 10mg Take 10 mg Univers m oxalate 0-22 by mouth ity of 10 mg 00:00: daily. [place] tablet [facility] Yes 10mg Take 10 mg Univers m oxalate 0-22 by mouth ity of 10 mg 00:00: daily. [place] tablet [facility] ARIPiprazol Yes TAKE 1 Univ ers e 5 mg 6-07 TABLET BY ity of tablet 00:00: MOUTH [facility] TAKE 1 Univ ers e 5 mg 6-07 TABLET BY ity of tablet 00:00: MOUTH EVERYDAY Medical AT [facility] ARIPiprazol Yes TAKE 1 Univ ers e 5 mg 6-07 TABLET BY ity of tablet 00:00: MOUTH EVERYDAY Medical AT BEDTIME Branch ARIPiprazol 0 Yes TAKE 1 Univ ers e 5 mg 6-07 TABLET BY ity of tablet 00:00: MOUTH EVERYDAY Medical AT BEDTIME Branch ARIPiprazol 0 Yes TAKE 1 Univ ers e 5 mg 6-07 TABLET BY ity of tablet 00:00: MOUTH EVERYDAY Medical AT BEDTIME Branch albuterol 0 Yes [id number] 2{puff} Inhale 2 Univers (PROAIR 3-07 Puffs ity of HFA) 90 00:00: every 6 [place] mcg/actuati 00 (six) Medical on inhaler hours as Branc h needed for Wheezing or Shortness of Breath. Nebulizer & Yes [id number] Use as Univers Compressor 3-07 directed ity o f For Neb 00:00: Medical Branch albuterol 0 Yes [id number] 2{puff} Inhale 2 Univers (PROAIR 3-07 Puffs ity of HFA) 90 00:00: every 6 [place] mcg/actuati 00 (six) Medical on inhaler hours as Branc h needed for Wheezing or Shortness of Breath. Nebulizer & Yes [id number] Use as Univers Compressor 3-07 directed ity o f For Neb 00:00: Medical Branch albuterol 0 Yes [id number] 2{puff} Inhale 2 Univers (PROAIR 3-07 Puffs ity of HFA) 90 00:00: every 6 [place] mcg/actuati 00 (six) Medical on inhaler hours as Branc h needed for Wheezing or Shortness of Breath. Nebulizer & 0 Yes [id number] Use as [facility] Compressor 3-07 directed ity o f For Neb 00:00: Medical Branch albuterol 0 Yes [id number] 2{puff} Inhale 2 [facility] (PROAIR 3-07 Puffs ity of HFA) 90 00:00: every 6 [place] mcg/actuati 00 (six) Medical on inhaler hours as Branc h needed for Wheezing or Shortness of Breath. Nebulizer & 0 Yes [id number] Use as [facility] Compressor 3-07 directed ity o f For Neb 00:00: Medical Branch albuterol Yes [id number] 2{puff} Inhale 2 [facility] (PROAIR 3-07 Puffs ity of HFA) 90 00:00: every 6 [place] mcg/actuati 00 (six) Medical on inhaler hours as Branc h needed for Wheezing or Shortness of Breath. Nebulizer & Yes [id number] Use as [facility] Compressor 3-07 directed ity o f For Neb 00:00: [place] Padmini 00 Medical Branch Famotidine Famotidine Yes JENNY QD TAKE 1 UT 20 MG Oral 20 MG Oral 1-15 HUMAIRA TABLET [facility] Tablet Tablet 00:00: M.D. DAILY ans 00 DIRECTED. prazosin 1 Yes TAKE ONE Uni vers mg capsule 1-12 CAPSULE BY ity of 00:00: MOUTH IN [place] 00 THE Medical EVENING Branch prazosin 1 Yes TAKE ONE Uni vers mg capsule 1-12 CAPSULE BY ity of 00:00: MOUTH IN [place] 00 THE Medical EVENING Branch prazosin 1 Yes TAKE ONE Uni vers mg capsule 1-12 CAPSULE BY ity of 00:00: MOUTH IN [place] 00 THE Medical EVENING Branch prazosin 1 Yes TAKE ONE Uni vers mg capsule 1-12 CAPSULE BY ity of 00:00: MOUTH IN [place] 00 THE Medical EVENING Branch prazosin 1 Yes TAKE ONE Uni vers mg capsule 1-12 CAPSULE BY ity of 00:00: MOUTH IN [place] 00 THE Medical EVENING Branch Levocetiriz 2016-08- No 5mg 5 mg Kelse y ine 0-26 11-03 Seybold Dihydrochlo 00:00: 00:00 - ride 5 [...] Name Name Influenza Virus 2022-06-18 Completed Negrita starkey - Vaccine, age 6 months 00:00:00 Ext ernal and up Influenza Virus 2022-06-18 Completed Negrita starkey - Vaccine, age 6 months 00:00:00 Ext ernal and up Meningococcal 2022-03-14 Completed Negrita Jarvis old - Vaccine- 00:00:00 External Conjugate(Menactra) Meningococcal 2022-03-14 Completed Negrita Jarvis old - Vaccine- 00:00:00 External Conjugate(Menactra) SARS-COV-2 COVID-19 2020-11-06 Completed Unive rsity of CRUZ/J&J VACCINE 00:00:00 [facility] SARS-COV-2 COVID-19 2020-11-06 Completed Unive rsity of CRUZ/J&J VACCINE 00:00:00 [facility] SARS-COV-2 COVID-19 2020-11-06 Completed Unive rsity of CRUZ/J&J VACCINE 00:00:00 [facility] SARS-COV-2 COVID-19 2020-11-06 Completed Unive rsity of CRUZ/J&J VACCINE 00:00:00 [facility] SARS-COV-2 COVID-19 2020-11-06 Completed Unive rsity of CRUZ/J&J VACCINE 00:00:00 [facility] Influenza Virus 2020-06-25 Completed Negrita starkey - Vaccine, No Preserv, 00:00:00 Exte rnal age 6 months and up Influenza Virus 2020-06-25 Completed Negrita starkey - Vaccine, No Preserv, 00:00:00 Exte rnal age 6 months and up Influenza Virus 2020-06-25 Completed Universit y of [...] 00:00:00 [place] [facility] 6+ [place] Branch HPV 9 (Human 2018-03-07 Completed Negrita Cope ld - Papillomavirus) 00:00:00 External HPV 9 (Human 2018-03-07 Completed Negrita Cope ld - Papillomavirus) 00:00:00 External HPV9 2018-03-07 Completed University of 00:00:00 [facility] HPV9 2018-03-07 Completed University of 00:00:00 [facility] HPV9 2018-03-07 Completed University of 00:00:00 [facility] Branch HPV9 2018-03-07 Completed University of 00:00:00 [facility] Branch HPV9 2018-03-07 Completed University of 00:00:00 [facility] HPV 9 (Human 2018-01-07 Completed Negrita Cope ld - Papillomavirus) 00:00:00 External HPV 9 (Human 2018-01-07 Completed Negrita Cope ld - Papillomavirus) 00:00:00 External HPV9 2018-01-07 Completed University of 00:00:00 [facility] Branch HPV9 2018-01-07 Completed University of 00:00:00 [facility] Branch HPV9 2018-01-07 Completed University of 00:00:00 [facility] Branch HPV9 2018-01-07 Completed University of 00:00:00 [facility] HPV9 2018-01-07 Completed University of 00:00:00 [facility] Meningococcal Vaccine 2013-11-27 Completed Dalton Jarvisold - Polysaccharide 00:00:00 External Tdap- (Boostrix, 2013-11-27 Completed Negrita peraltabold - Adacel) 00:00:00 External Meningococcal Vaccine 2013-11-27 Completed Dalton Jarvisold - Polysaccharide 00:00:00 External Tdap- (Boostrix, 2013-11-27 Completed Negrita muñoz - Adacel) 00:00:00 External Meningococcal Vaccine 2013-11-27 Completed Uni versity of 00:00:00 [facility] TDAP 2013-11-27 Completed University of 00:00:00 [facility] Meningococcal Vaccine 2013-11-27 Completed Uni versity of 00:00:00 [facility] TDAP 2013-11-27 Completed University of 00:00:00 [facility] Meningococcal Vaccine 2013-11-27 Completed Uni versity of 00:00:00 [facility] TDAP 2013-11-27 Completed University of 00:00:00 [facility] Meningococcal Vaccine 2013-11-27 Completed Uni versity of 00:00:00 [facility] TDAP 2013-11-27 Completed University of 00:00:00 [facility] Meningococcal Vaccine 2013-11-27 Completed Uni versity of 00:00:00 [facility] TDAP 2013-11-27 Completed University of 00:00:00 [facility] Influenza Virus 2011-06-04 Completed Negrita starkey - Vaccine, No Preserv, 00:00:00 Exte rnal age 6 months and up Influenza Virus 2011-06-04 Completed Negrita starkey - Vaccine, No Preserv, 00:00:00 Exte rnal age 6 months and up Influenza Virus 2011-06-04 Completed Universit y of Vaccine Quad IM 3+ 00:00:00 [facility] Influenza Virus 2011-06-04 Completed Universit y of Vaccine Quad IM 3+ 00:00:00 [facility] Influenza Virus 2011-06-04 Completed Universit y of Vaccine Quad IM 3+ 00:00:00 [facility] Influenza Virus 2011-06-04 Completed Universit y of Vaccine Quad IM 3+ 00:00:00 [facility] Influenza Virus 2011-06-04 Completed Universit y of Vaccine Quad IM 3+ 00:00:00 [facility] DTaP 2006-11-16 Completed Negrita Neal - 00:00:00 External HEPATITIS A- 2006-11-16 Completed Negrita sanchez - PEDI/ADOL 00:00:00 External MMR- Measles, Mumps, 2006-11-16 Completed Yuli ey Seybold - Rubella 00:00:00 External Polio Vaccine 2006-11-16 Completed Negrita Jarvis old - 00:00:00 External Varicella Vaccine 2006-11-16 Completed Negrita Neal - 00:00:00 External DTaP 2006-11-16 Completed Negrita Neal - 00:00:00 External HEPATITIS A- 2006-11-16 Completed Negrita Cope ld - PEDI/ADOL 00:00:00 External MMR- Measles, Mumps, 2006-11-16 Completed Yuli Neal - Rubella 00:00:00 External Polio Vaccine 2006-11-16 Completed Negrita walters - 00:00:00 External Varicella Vaccine 2006-11-16 Completed Negrita Neal - 00:00:00 External DTAP 2006-11-16 Completed University of 00:00:00 [facility] HEPATITIS A 2006-11-16 Completed University of 00:00:00 [facility] MMR 2006-11-16 Completed University of 00:00:00 [facility] Polio (IPV/OPV) 2006-11-16 Completed Universit y of 00:00:00 [facility] Varicella 2006-11-16 Completed University of (varivax)(chicken 00:00:00 [place] M edical pox) Branch DTAP 2006-11-16 Completed University of 00:00:00 [facility] HEPATITIS A 2006-11-16 Completed University of 00:00:00 [facility] MMR 2006-11-16 Completed University of 00:00:00 [facility] Polio (IPV/OPV) 2006-11-16 Completed Universit y of 00:00:00 [facility] Varicella 2006-11-16 Completed University of (varivax)(chicken 00:00:00 [place] M edical pox) Branch DTAP 2006-11-16 Completed University of 00:00:00 [facility] HEPATITIS A 2006-11-16 Completed University of 00:00:00 [facility] MMR 2006-11-16 Completed University of 00:00:00 [facility] Polio (IPV/OPV) 2006-11-16 Completed Universit y of 00:00:00 [facility] Varicella 2006-11-16 Completed University of (varivax)(chicken 00:00:00 [place] M edical pox) Branch DTAP 2006-11-16 Completed University of 00:00:00 [facility] HEPATITIS A 2006-11-16 Completed University of 00:00:00 [facility] MMR 2006-11-16 Completed University of 00:00:00 [facility] Polio (IPV/OPV) 2006-11-16 Completed Universit y of 00:00:00 [facility] Varicella 2006-11-16 Completed University of (varivax)(chicken 00:00:00 [place] M edical pox) Branch DTAP 2006-11-16 Completed University of 00:00:00 [facility] HEPATITIS A 2006-11-16 Completed University of 00:00:00 [facility] MMR 2006-11-16 Completed University of 00:00:00 [facility] Polio (IPV/OPV) 2006-11-16 Completed Universit y of 00:00:00 [facility] Varicella 2006-11-16 Completed University of (varivax)(chicken 00:00:00 [place] M edical pox) [place] HEPATITIS A- 2006-04-16 Completed Negrita Cope ld - PEDI/ADOL 00:00:00 External HEPATITIS A- 2006-04-16 Completed Negrita Cope ld - PEDI/ADOL 00:00:00 External HEPATITIS A 2006-04-16 Completed University of 00:00:00 [facility] HEPATITIS A 2006-04-16 Completed University of 00:00:00 [facility] HEPATITIS A 2006-04-16 Completed University of 00:00:00 [facility] HEPATITIS A 2006-04-16 Completed University of 00:00:00 [facility] HEPATITIS A 2006-04-16 Completed University of 00:00:00 [facility] DTaP 2004-02-06 Completed Negrita Neal - 00:00:00 External Tetanus Toxoid/HIB 2004-02-06 Completed Negrita Neal - 00:00:00 External Pneumococcal Vaccine, 2004-02-06 Completed Dalton Neal - Conjugate 13 00:00:00 External DTaP 2004-02-06 Completed Negrita Neal - 00:00:00 External Tetanus Toxoid/HIB 2004-02-06 Completed Negrita Neal - 00:00:00 External Pneumococcal Vaccine, 2004-02-06 Completed Dalton Neal - Conjugate 13 00:00:00 External DTAP 2004-02-06 Completed University of 00:00:00 [facility] HIB 4 Dose Schedule 2004-02-06 Completed Unive rsity of 00:00:00 [facility] Pneumococcal 13 2004-02-06 Completed Universit y of Conjugate, PCV13 00:00:00 [facility] dical (Prevnar 13) Branch DTAP 2004-02-06 Completed University of 00:00:00 [facility] HIB 4 Dose Schedule 2004-02-06 Completed Unive rsity of 00:00:00 [facility] Pneumococcal 13 2004-02-06 Completed Universit y of Conjugate, PCV13 00:00:00 [facility] dical (Prevnar 13) Branch DTAP 2004-02-06 Completed University of 00:00:00 [facility] HIB 4 Dose Schedule 2004-02-06 Completed Unive rsity of 00:00:00 [facility] Pneumococcal 13 2004-02-06 Completed Universit y of Conjugate, PCV13 00:00:00 [facility] dical (Prevnar 13) Branch DTAP 2004-02-06 Completed University of 00:00:00 [facility] HIB 4 Dose Schedule 2004-02-06 Completed Unive rsity of 00:00:00 [facility] Pneumococcal 13 2004-02-06 Completed Universit y of Conjugate, PCV13 00:00:00 [facility] dical (Prevnar 13) Branch DTAP 2004-02-06 Completed University of 00:00:00 [facility] HIB 4 Dose Schedule 2004-02-06 Completed Unive rsity of 00:00:00 [facility] Pneumococcal 13 2004-02-06 Completed Universit y of Conjugate, PCV13 00:00:00 [facility] dical (Prevnar 13) Branch MMR- Measles, Mumps, 2003-10-29 Completed Yuli Neal - Rubella 00:00:00 External Varicella Vaccine 2003-10-29 Completed Negrita Nela - 00:00:00 External MMR- Measles, Mumps, 2003-10-29 Completed Yuli Neal - Rubella 00:00:00 External Varicella Vaccine 2003-10-29 Completed Negrita Neal - 00:00:00 External MMR 2003-10-29 Completed University of 00:00:00 [facility] Varicella 2003-10-29 Completed University of (varivax)(chicken 00:00:00 [place] M edical pox) Branch MMR 2003-10-29 Completed University of 00:00:00 [facility] Varicella 2003-10-29 Completed University of (varivax)(chicken 00:00:00 [place] M edical pox) Branch MMR 2003-10-29 Completed University of 00:00:00 [facility] Varicella 2003-10-29 Completed University of (varivax)(chicken 00:00:00 [place] M edical pox) Branch MMR 2003-10-29 Completed University of 00:00:00 [facility] Varicella 2003-10-29 Completed University of (varivax)(chicken 00:00:00 [place] M edical pox) Branch MMR 2003-10-29 Completed University of 00:00:00 [facility] Varicella 2003-10-29 Completed University of (varivax)(chicken 00:00:00 [place] M edical pox) Branch DTaP 2003-04-27 Completed Negrita Neal - 00:00:00 External Hepatitis B, 2003-04-27 Completed Negrita sanchez - Adolescent Or 00:00:00 External Pediatric Tetanus Toxoid/HIB 2003-04-27 Completed Negrita Neal - 00:00:00 External Pneumococcal Vaccine, 2003-04-27 Completed Dalton Neal - Conjugate 13 00:00:00 External Polio Vaccine 2003-04-27 Completed Negrita walters - 00:00:00 External DTaP 2003-04-27 Completed Negrita Neal - 00:00:00 External Hepatitis B, 2003-04-27 Completed Negrita sanchez - Adolescent Or 00:00:00 External Pediatric Tetanus Toxoid/HIB 2003-04-27 Completed Negrita Neal - 00:00:00 External Pneumococcal Vaccine, 2003-04-27 Completed Dalton Neal - Conjugate 13 00:00:00 External Polio Vaccine 2003-04-27 Completed Negrita walters - 00:00:00 External DTAP 2003-04-27 Completed University of 00:00:00 [facility] HIB 4 Dose Schedule 2003-04-27 Completed Unive rsity of 00:00:00 [facility] Hep B, Adol or Pedi 2003-04-27 Completed Unive rsity of Dosage 00:00:00 [facility] Pneumococcal 13 2003-04-27 Completed Universit y of Conjugate, PCV13 00:00:00 [facility] (Prevnar 13) Branch Polio (IPV/OPV) 2003-04-27 Completed Universit y of 00:00:00 [facility] DTAP 2003-04-27 Completed University of 00:00:00 [facility] HIB 4 Dose Schedule 2003-04-27 Completed Unive rsity of 00:00:00 [facility] Hep B, Adol or Pedi 2003-04-27 Completed Unive rsity of Dosage 00:00:00 [facility] Pneumococcal 13 2003-04-27 Completed Universit y of Conjugate, PCV13 00:00:00 [facility] dical (Prevnar 13) Branch Polio (IPV/OPV) 2003-04-27 Completed Universit y of 00:00:00 [facility] DTAP 2003-04-27 Completed University of 00:00:00 [facility] HIB 4 Dose Schedule 2003-04-27 Completed Unive rsity of 00:00:00 [facility] Hep B, Adol or Pedi 2003-04-27 Completed Unive rsity of Dosage 00:00:00 [facility] Pneumococcal 13 2003-04-27 Completed Universit y of Conjugate, PCV13 00:00:00 [facility] dical (Prevnar 13) Branch Polio (IPV/OPV) 2003-04-27 Completed Universit y of 00:00:00 [facility] DTAP 2003-04-27 Completed University of 00:00:00 [facility] HIB 4 Dose Schedule 2003-04-27 Completed Unive rsity of 00:00:00 [facility] Hep B, Adol or Pedi 2003-04-27 Completed Unive rsity of Dosage 00:00:00 [facility] Pneumococcal 13 2003-04-27 Completed Universit y of Conjugate, PCV13 00:00:00 [facility] dical (Prevnar 13) Branch Polio (IPV/OPV) 2003-04-27 Completed Universit y of 00:00:00 [facility] DTAP 2003-04-27 Completed University of 00:00:00 [facility] HIB 4 Dose Schedule 2003-04-27 Completed Unive rsity of 00:00:00 [facility] Hep B, Adol or Pedi 2003-04-27 Completed Unive rsity of Dosage 00:00:00 [facility] Pneumococcal 13 2003-04-27 Completed Universit y of Conjugate, PCV13 00:00:00 [facility] dical (Prevnar 13) Branch Polio (IPV/OPV) 2003-04-27 Completed Universit y of 00:00:00 [facility] DTaP 2003-02-27 Completed Negrita Neal - 00:00:00 External Hepatitis B, 2003-02-27 Completed Negrita Cope ld - Adolescent Or 00:00:00 External Pediatric Tetanus Toxoid/HIB 2003-02-27 Completed Negrita Neal - 00:00:00 External Pneumococcal Vaccine, 2003-02-27 Completed Dalton Neal - Conjugate 13 00:00:00 External Polio Vaccine 2003-02-27 Completed Negrita Jarvis old - 00:00:00 External DTaP 2003-02-27 Completed Negrita Neal - 00:00:00 External Hepatitis B, 2003-02-27 Completed Negrita sanchez - Adolescent Or 00:00:00 External Pediatric Tetanus Toxoid/HIB 2003-02-27 Completed Negrita Neal - 00:00:00 External Pneumococcal Vaccine, 2003-02-27 Completed Dalton Neal - Conjugate 13 00:00:00 External Polio Vaccine 2003-02-27 Completed Negrita walters - 00:00:00 External DTAP 2003-02-27 Completed University of 00:00:00 [facility] HIB 4 Dose Schedule 2003-02-27 Completed Unive rsity of 00:00:00 [facility] Hep B, Adol or Pedi 2003-02-27 Completed Unive rsity of Dosage 00:00:00 [facility] Pneumococcal 13 2003-02-27 Completed Universit y of Conjugate, PCV13 00:00:00 [facility] dical (Prevnar 13) Branch Polio (IPV/OPV) 2003-02-27 Completed Universit y of 00:00:00 [facility] DTAP 2003-02-27 Completed University of 00:00:00 [facility] HIB 4 Dose Schedule 2003-02-27 Completed Unive rsity of 00:00:00 [facility] Hep B, Adol or Pedi 2003-02-27 Completed Unive rsity of Dosage 00:00:00 [facility] Pneumococcal 13 2003-02-27 Completed Universit y of Conjugate, PCV13 00:00:00 [facility] dical (Prevnar 13) Branch Polio (IPV/OPV) 2003-02-27 Completed Universit y of 00:00:00 [facility] DTAP 2003-02-27 Completed University of 00:00:00 [facility] HIB 4 Dose Schedule 2003-02-27 Completed Unive rsity of 00:00:00 [facility] Hep B, Adol or Pedi 2003-02-27 Completed Unive rsity of Dosage 00:00:00 [facility] Pneumococcal 13 2003-02-27 Completed Universit y of Conjugate, PCV13 00:00:00 [facility] dical (Prevnar 13) [place] Polio (IPV/OPV) 2003-02-27 Completed Universit y of 00:00:00 [facility] DTAP 2003-02-27 Completed University of 00:00:00 [facility] HIB 4 Dose Schedule 2003-02-27 Completed Unive rsity of 00:00:00 [facility] Hep B, Adol or Pedi 2003-02-27 Completed Unive rsity of Dosage 00:00:00 [facility] Pneumococcal 13 2003-02-27 Completed Universit y of Conjugate, PCV13 00:00:00 [facility] dical (Prevnar 13) [place] Polio (IPV/OPV) 2003-02-27 Completed Universit y of 00:00:00 [facility] DTAP 2003-02-27 Completed University of 00:00:00 [facility] HIB 4 Dose Schedule 2003-02-27 Completed Unive rsity of 00:00:00 [facility] Hep B, Adol or Pedi 2003-02-27 Completed Unive rsity of Dosage 00:00:00 [facility] Pneumococcal 13 2003-02-27 Completed Universit y of Conjugate, PCV13 00:00:00 [facility] dical (Prevnar 13) [place] Polio (IPV/OPV) 2003-02-27 Completed Universit y of 00:00:00 [facility] DTaP 2002 Completed Negrita Neal - 00:00:00 External Hepatitis B, 2002 Completed Negrita Cope ld - Adolescent Or 00:00:00 External Pediatric Tetanus Toxoid/HIB 2002 Completed Negrita Neal - 00:00:00 External Pneumococcal Vaccine, 2002 Completed Dalton Neal - Conjugate 13 00:00:00 External Polio Vaccine 2002 Completed Negrita walters - 00:00:00 External DTaP 2002 Completed Negrita Neal - 00:00:00 External Hepatitis B, 2002 Completed Negrita Cope ld - Adolescent Or 00:00:00 External Pediatric Tetanus Toxoid/HIB 2002 Completed Negrita Neal - 00:00:00 External Pneumococcal Vaccine, 2002 Completed Dalton Neal - Conjugate 13 00:00:00 External Polio Vaccine 2002 Completed Negrita walters - 00:00:00 External DTAP 2002 Completed University of 00:00:00 [facility] HIB 4 Dose Schedule 2002 Completed Unive rsity of 00:00:00 [facility] Hep B, Adol or Pedi 2002 Completed Unive rsity of Dosage 00:00:00 [facility] Pneumococcal 13 2002 Completed Universit y of Conjugate, PCV13 00:00:00 [facility] dical (Prevnar 13) Branch Polio (IPV/OPV) 2002 Completed Universit y of 00:00:00 [facility] DTAP 2002 Completed University of 00:00:00 [facility] HIB 4 Dose Schedule 2002 Completed Unive rsity of 00:00:00 [facility] Hep B, Adol or Pedi 2002 Completed Unive rsity of Dosage 00:00:00 [facility] Pneumococcal 13 2002 Completed Universit y of Conjugate, PCV13 00:00:00 [facility] dical (Prevnar 13) Branch Polio (IPV/OPV) 2002 Completed Universit y of 00:00:00 [facility] DTAP 2002 Completed University of 00:00:00 [facility] HIB 4 Dose Schedule 2002 Completed Unive rsity of 00:00:00 [facility] Hep B, Adol or Pedi 2002 Completed Unive rsity of Dosage 00:00:00 [facility] Pneumococcal 13 2002 Completed Universit y of Conjugate, PCV13 00:00:00 [facility] dical (Prevnar 13) Branch Polio (IPV/OPV) 2002 Completed Universit y of 00:00:00 [facility] DTAP 2002 Completed University of 00:00:00 [facility] HIB 4 Dose Schedule 2002 Completed Unive rsity of 00:00:00 [facility] Hep B, Adol or Pedi 2002 Completed Unive rsity of Dosage 00:00:00 [facility] Pneumococcal 13 2002 Completed Universit y of Conjugate, PCV13 00:00:00 [facility] [facility] dical (Prevnar 13) Branch Polio (IPV/OPV) 2002 Completed [facility]it y of 00:00:00 [facility] DTAP 2002 Completed University of 00:00:00 [facility] HIB 4 Dose Schedule 2002 Completed Unive rsity of 00:00:00 [facility] Hep B, Adol or Pedi 2002 Completed Unive rsity of Dosage 00:00:00 [facility] Pneumococcal 13 2002 Completed Universit y of Conjugate, PCV13 00:00:00 [facility] dical (Prevnar 13) Branch Polio (IPV/OPV) 2002 Completed Universit y of 00:00:00 [facility] Hepatitis B, 2002 Completed Negrita Cope ld - Adolescent Or 00:00:00 External Pediatric Hepatitis B, 2002 Completed Negrita Cope ld - Adolescent Or 00:00:00 External Pediatric Hep B, Adol or Pedi 2002 Completed Unive rsity of Dosage 00:00:00 [facility] Hep B, Adol or Pedi 2002 Completed Unive rsity of Dosage 00:00:00 [facility] Hep B, Adol or Pedi 2002 Completed Unive rsity of Dosage 00:00:00 [facility] Hep B, Adol or Pedi 2002 Completed Unive rsity of Dosage 00:00:00 [facility] Hep B, Adol or Pedi 2002 Completed Unive rsity of Dosage 00:00:00 [facility] Vital Signs Vital Name Observation Time Observation Value Comments Source Systolic blood 2022-08-21 120 mm[Hg] Negrita Limon d - pressure 15:40:00 External Diastolic blood 2022-08-21 64 mm[Hg] Negrita Cope ld - pressure 15:40:00 External Heart rate 2022-08-21 117 /min Negrita Neal - 15:40:00 External Body temperature 2022-08-21 36.67 Vani Negrita Anayayb old - 15:40:00 External Respiratory rate 2022-08-21 15 /min Negrita Anayayb old - 15:40:00 External Body height 2022-08-21 162.6 cm Negrita Anayaybold - 15:40:00 External Body weight 2022-08-21 127.914 kg Negrita Anayaybold - 15:40:00 External BMI 2022-08-21 48.41 kg/m2 Negrita Seybold - 15:40:00 External Systolic blood 2022-06-26 112 mm[Hg] University of pressure 16:53:00 [facility] Diastolic blood 2022-06-26 77 mm[Hg] Soper o f pressure 16:53:00 [facility] Heart rate 2022-06-26 72 /min [facility] 16:53:00 [facility] Body temperature 2022-06-26 37.44 Vani [facility] 16:53:00 [facility] Respiratory rate 2022-06-26 16 /min [facility] 16:53:00 [facility] Body height 2022-06-26 162.6 cm [facility] 16:53:00 [facility] Body weight 2022-06-26 125.011 kg [facility] 16:53:00 [facility] BMI 2022-06-26 47.31 kg/m2 [facility] 16:53:00 [facility] Oxygen saturation 2022-06-26 97 /min [facility] in Arterial blood 16:53:00 [facility] Pulse oximetry Branch Systolic blood 2022-06-18 102 mm[Hg] Negrita Seybol d - pressure 14:37:00 External Diastolic blood 2022-06-18 56 mm[Hg] Negrita Seybo ld - pressure 14:37:00 External Heart rate 2022-06-18 82 /min Negrita Seybold - 14:37:00 External Body temperature 2022-06-18 36.17 Vani Negrita yb old - 14:37:00 External Respiratory rate 2022-06-18 14 /min Negrita Seyb old - 14:37:00 External Body height 2022-06-18 162.6 cm Negrita ybold - 14:37:00 External Body weight 2022-06-18 126.554 kg Negrita ybold - 14:37:00 External BMI 2022-06-18 47.89 kg/m2 Negrita Anayaybold - 14:37:00 External Height 2019-08-25 162.56 CM 04:14:00 Weight 2019-08-25 117.48 KG 04:14:00 Height 2019-08-24 162.56 CM 10:59:00 Weight 2019-08-24 113.39 KG 10:59:00 Heart Rate 2020-12-20 87 /min Location: L [facility] 09:59:00 Brachial Artery; O2 SAT 2020-12-20 97 % Source: RA [facility] 09:59:00 Systolic blood 2020-12-20 124 mm[Hg] Location: LUE; [facility] pressure 09:59:00 Position: Sitting Diastolic blood 2020-12-20 82 mm[Hg] Location: LUE; [facility] pressure 09:59:00 Position: Sitting Body height 2020-12-20 64 [in_us] [facility] 09:59:00 Weight 2020-12-20 291.1875 [lb_av] [facility] 09:59:00 Body mass index 2020-12-20 49.98 kg/m2 [facility] (BMI) [Ratio] 09:59:00 Body temperature 2020-12-20 96.9 [degF] Method: [facility] 09:59:00 Temporal Systolic blood 2020-11-05 99 mm[Hg] Location: RUE; [facility] pressure 10:37:00 Position: Sitting Diastolic blood 2020-11-05 65 mm[Hg] Location: RUE; [facility] pressure 10:37:00 Position: Sitting Body [...] Procedure Date / Time Performed Performing Clinician [facility] e EXTERNAL PROVIDER 2022-01-14 05:01:00 Doctor Unassigned, No Univ [facility] RECORDS Name Medical Branch [Q] HEPATITIS PANEL, 2020-11-11 00:00:00 [facility] ACUTE W/REFLEX [QL] CMP W/EGFR 2020-11-11 00:00:00 [facility] [Q] NMDA RECEPTOR 2020-11-11 00:00:00 [facility] ANITBODY TEST [Q] NMDA RECEPTOR 2020-11-05 00:00:00 [facility] ANITBODY TEST [Q] HEPATITIS PANEL, 2020-11-05 00:00:00 [facility] ACUTE W/REFLEX EXCISION TOE NAIL 2019-08-25 00:00:00 [facility] dicmi EXTERNAL APPROACH Center Plan of Care Planned Activity Planned Date Details Comments Source Diagnostic Test 2020-11-11 00:00:00 [Q] HEPATITIS PANEL, [facility] Pending ACUTE W/REFLEX [code = [Q] [...] Type Clinicians Facility Department ID 2022-07-01 Outpatient [facility] [id number] [place] 15:01:[id number] [place] [address] 2022-06-18 Outpatient [facility] [id number] [place] 08:39:[id number] [place] [address] 2021-09-12 Outpatient CLAY [facility] [id number] [place] 15:10:55 [facility] 2022-11-09 2022-11-09 Outpatient CLAY [facility] [id number] [place] 09:30:00 09:30:00 [facility] 2022-08-28 2022-08-28 Outpatient NEGRITA MORALES [id number] Negrita 00:00:00 00:00:00 SULY de la rosa 2022-08-27 2022-08-27 Outpatient NEGRITA RUANO [id number] Negrita 00:00:00 00:00:00 LAMBERTO de la rosa 2022-08-25 2022-08-25 Outpatient HUNDL, NEGRITA KEATING [id number] Negrita 00:00:00 00:00:00 LAMBERTO Seybol d 2022-08-21 2022-08-21 Outpatient LAB90 NEGRITA KEATING [id number] Negrita 10:45:00 10:45:00 Seybol d 2022-08-21 2022-08-21 Outpatient HUNDL, NEGRITA KEATING [id number] Negrita 10:00:00 10:00:00 LAMBERTO Seybol d 2022-08-21 2022-08-21 Outpatient HUNDL, NEGRITA KEATING [id number] Negrita 00:00:00 00:00:00 LAMBERTO Seybol d 2022-06-26 2022-06-26 Urgent Shar Breen [facility] 1.2.840.114 [id number] Univers 10:40:00 11:00:00 Care Unknown, Attending [facility] 350.1.13.10 [facility] 4.2.7.2.686 Matthew as PEYMAN?BLEA [phone] [address] MEDICAL OFFICE BUILDING 2022-06-26 2022-06-26 Outpatient R ROCAEL [facility] [id number] [facility] 10:40:00 10:40:00 SHAR [facility] 2022-06-24 2022-06-24 Outpatient PREZAS, NEGRITA KEATING [id number] Negrita 00:00:00 00:00:00 SULY Seybol d 2022-06-18 2022-06-18 Outpatient LAB90 NEGRITA KEATING [id number] Negrita 10:45:00 10:45:00 Seybol d 2022-06-18 2022-06-18 Outpatient PREZASNEGRITA [id number] Negrita 10:00:00 10:00:00 SULY Seybol d 2022-06-12 2022-06-12 Outpatient PREZAS, NEGRITA KEATING [id number] Negrita 10:15:00 10:15:00 SULY Seybol d 2022-03-04 2022-03-04 Telephone Team, [facility] SERGIO 1.2.840.[id number] [facility] 00:00:00 00:00:00 Health AYLIN 350.1.13.10 it y of [facility] HOSPITAL 4.2.7.2.686 [place] [id number] [facility] [address] 2022-02-05 2022-02-05 Outpatient R PHILLY [facility] [id number] [facility] 08:30:00 08:30:00 ENOCH ity of [facility] 2022-01-29 2022-01-29 [facility] 1.2.840.[id number] [facility] 00:00:00 00:00:00 Enoch WILLIS 350.1.13.10 i ty of [place].2.[place] PROF[place] [phone] Hi dic[address] 2022-01-14 2022-01-14 Orders Doctor SERGIO 1.2.840.[id number] [place] [address] 00:00:00 00:00:00 Only Unassigned, AYLIN 350.1.13.10 ity of [place] [facility] 4.2.7.2.686 Matthew as [phone] [facility] [address] 2021-12-29 2021-12-29 Telephone MODESTA Lopez 6410 1.2.840.114 [id number] [place] 00:00:00 00:00:00 Sergio POP 350.1.13.58 Health 9.2.7.2.686 [id number] 8 2021-12-08 2021-12-08 Telephone Vanna Lopez UTP 6410 1.2.840 .114 [id number] [place] 00:00:00 00:00:00 Vanna Lopez 350.1.13.58 Health 9.2.7.2.686 [id number] 8 2021-11-20 2021-11-20 Telephone Philly [place] 1.2.840.[id number] [facility] 00:00:00 00:00:00 Enoch WILLIS 350.1.13.10 i ty of [place] [phone] Hi dical NAL [address] [place] [address] 2021-11-04 2021-11-04 Outpatient R PHILLYUC [facility] [id number] Univers 08:00:00 08:43:51 ENOCH coleman [facility] 2021-11-04 2021-11-04 Office Philly [facility] 1.2.799.552 [id number] Univers 08:00:00 08:43:51 Visit Enoch WILLIS 350.1.13.10 i ty of [place] [phone] Hi dical NAL [address] [place] [address] 2021-11-04 2021-11-04 Outpatient R PHILLY [facility] [id number] Univers 08:00:00 08:43:51 ENOCH coleman [facility] 2021-11-04 2021-11-04 Orders Doctor HILL 1.2.840.114 [id number] Univers 00:00:00 00:00:00 Only Unassigned, AYLIN 350.1.13.10 ity of [place] [facility] 4.2.7.2.686 Matthew as [phone] [facility] [address] 2021-10-20 2021-10-20 Office MODESTA Lopez 6410 1.2.798.275 [id number] [place] 09:30:00 10:00:00 Visit Sergio POP 350.1.13.58 [facility] 9.2.7.2.686 [id number] 2021-10-06 2021-10-06 [facility] 1.2.041.481 [id number] Univers 00:00:00 00:00:00 Enoch WILLIS 350.1.13.10 i ty of [place].2.[place] [phone] Hi dical NAL [address] [facility] 2021-09-29 2021-09-29 Letter SERGIO [place] 1.2.840.114 [id number] Univers 00:00:00 00:00:00 (Out) Marina VIERA 350.1.13.10 it y of [facility] 4.2.7.2.686 Matthew as [id number] [facility] [address] 2021-09-28 2021-09-28 Urgent Chari Reyes [facility] 1.2 .840.114 [id number] Univers 11:40:00 11:40:00 [facility] 350.1.13.10 ity of [place] 4.2.7.2.686 Matthew as PEYMAN?BLEA [phone] Hi adeel VALDOVINOS [address] MEDICAL OFFICE [facility] 2021-09-28 2021-09-28 Outpatient R LISA [facility] [id number] Univers 11:40:00 11:33:39 CHARI Zamora it y [facility] 2021-09-15 2021-09-15 Outpatient R HENRYUC [facility] [id number] Univers 10:32:07 23:59:00 [facility] 2021-09-15 2021-09-15 [facility] 1.2.840.114 [id number] Univers 10:32:07 23:59:00 Encounter [facility] 350.1.13.10 ity of [place] 4.2.7.2.686 Matthew as PEYMAN?BLEA [phone] Hi adeel VALDOVINOS 808 [facility] OFFICE [facility] 2021-09-15 2021-09-15 Urgent Sonia Figueroa [facility] 1.2.840.114 [id number] Univers 10:20:00 10:40:00 Care [facility]ury[facility] 350.1.13.10 ity of [place] 4.2.7.2.686 Matthew as PEYMAN?BLEA [id number] Hi dictito VALDOVINOS [address] MEDICAL OFFICE [facility] 2021-09-13 2021-09-13 Outpatient R KING MARCELINOUC [facility] [id number] Univers 17:20:00 17:39:01 TRACE [facility] 2021-09-13 2021-09-13 Nurse SERGIO Allen 1.2.840.114 [id number] Univers 00:00:00 00:00:00 Triage Olivia AYLIN 350.1.13.10 it y of HOSPITAL 4.2.7.2.686 Matthew as [id number] [address] 2021-09-13 2021-09-13 Orders Doctor SERGIO 1.2.840.114 [id number] Univers 00:00:00 00:00:00 Only Unassigned, AYLIN 350.1.13.10 ity of [facility] 4.2.7.2.686 Matthew as [id number] [address] 2020-12-20 2020-12-20 Appointmen ALEX BYERS Neurology - [id number] [place] 10:00:00 10:00:00 t; ALEX SANCHEZ [place] Magaly Chirinos [facility] M.D. 2020-11-05 2020-11-05 AppointMODESTA Merino Pedi [id number] [place] 10:00:00 10:00:00 t; KILLIAN WEBER, Neurology Ph Magaly Najera M.D. 2020-09-25 2020-09-25 Outpatient R PHILLYUC [facility] [id number] Univers 15:30:00 15:30:00 ENOCH coleman [facility] 2020-09-25 2020-09-25 Telemedici [facility] 1.2.840.114 [id number] Univers 08:21:38 08:51:38 ne Visit Enoch Willis 350.1.13.10 ity of [place] [phone] Hi dical [address] 2020-09-17 2020-09-17 [facility]ill [facility] 1.2.546.339 [id number] Univers 00:00:00 00:00:00 Enochmonica Willis 350.1.13.10 i ty of [place] [phone] Hi dical nal [address] [place] [address] 2020-09-06 2020-09-06 AppointMODESTA Waggoner [id number] [place] 08:00:00 08:00:00 t; RENETTA ALEGRE M.D. Physici SHADE, ans M.D. 2020-08-15 2020-08-15 [facility] 1.2.195.887 [id number] Univers 00:00:00 00:00:00 Enoch Willis 350.1.13.10 i ty of [place].2.[place] [phone] Hi dical nal [address] [place] [address] 2020-08-11 2020-08-11 [facility] 1.2.317.198 [id number] Univers 00:00:00 00:00:00 Enoch Willis 350.1.13.10 i ty of [place].7.2.[place] [phone] Hi dical nal [address] [place] [address] 2020-07-23 2020-07-23 Appointmen BHAVYA, MODESTA [facility] [id number] [place] 10:30:00 10:30:00 t; ALDO LATIF P hysici MARY KAY, M.D. ans M.D. 2020-07-04 2020-07-04 Case [facility] 1.2.779.[id number] [facility] 00:00:00 00:00:00 Management Enoch Willis 350.1.13.10 ity of [place] [phone] [facility] nal [address] [place] [address] 2020-07-04 2020-07-04 Telephone [facility] 1.2.840.[id number] [facility] 00:00:00 00:00:00 Enoch Willis 350.1.13.10 i ty of [place]7.2.[place] [phone] Hi dical nal [address] [place] [address] 2020-06-25 2020-06-25 Office [facility] 1.2.396.527 [id number] Univers 13:26:11 15:22:55 Visit Enoch Willis 350.1.13.10 i ty of [place].2.[place] [phone] Hi dical nal [address] [place] [address] 2020-06-25 2020-06-25 Outpatient R [facility]UC [facility] [id number] Univers 13:30:00 13:30:00 ENOCH ity [facility] 2020-06-25 2020-06-25 Letter [facility] 1.2.444.735 [id number] Univers 00:00:00 00:00:00 (Out) Enoch Willis 350.1.13.10 i ty [place]2.[place].2.[place] [address] [phone] [facility] [address] [facility] 2020-06-25 2020-06-25 Orders Doctor SERGIO 1.2.840.114 [id number] Univers 00:00:00 00:00:00 Only Unassigned, AYLIN 350.1.13.10 ity of [place] [facility] 4.2.7.2.686 Matthew as [phone] [address] 2020-05-30 2020-05-30 Outpatient R PHILLYUC [facility] [id number] Univers 13:00:00 13:00:00 ENOCH coleman [facility] 2020-05-22 2020-05-22 Telephone [facility] 1.2.840.11 [id number] Univers 00:00:00 00:00:00 , Blanquita Mas 350.1.13.10 it y of [facility] 4.2.7.2.686 [facility] [id number] [facility] [address] 2020-05-13 2020-05-13 Refcinthia [facility] 1.2.512.548 [id number] Univers 00:00:00 00:00:00 Enoch Willis 350.1.13.10 i ty of [place] [id number] [address] 2020-04-12 2020-04-12 Appointestella ALEGRE [facility] UTP [id number] [place] 09:20:00 09:20:00 t; RENETTA ALEGRE M.D. Physici SHADE, ans M.D. 2020-03-27 2020-03-27 MODESTA Lees UTP [id number] [place] 09:30:00 09:30:00 t; Magaly HILL ans JOHN, M.D. 2020-02-14 2020-02-14 Orders Doctor SERGIO 1.2.840.114 [id number] Univers 00:00:00 00:00:00 Only Unassigned, AYLIN 350.1.13.10 ity of [place] [facility] 4.2.7.2.686 Matthew as [phone] [address] 2020-01-29 2020-01-29 Telemedici Enoch Fraga [facility] 1.2.840 .114 [id number] Univers 15:04:55 15:34:55 ne Visit Balaji Armas [place] 350.1.13.10 ity of [place].2.7.2.[place] Profess[place] [phone] [facility] [address] [facility] 2020-01-29 2020-01-29 Outpatient R BALAJI ARMAS [facility] [id number] Univers 15:00:00 15:00:00 ity of [facility] 2020-01-09 2020-01-09 Telephone Pob1, Acute [facility] 1.2.840.114 [id number] Univers 00:00:00 00:00:00 Care [facility] Health 350.1.13.10 ity of [place] 4.2.7.2.686 Matthew as Professio [phone] [facility] [address] 2020-01-05 2020-01-05 Urgent Pob1, Acute Care Clinic [facility] 1. 2.840.114 [id number] Univers 10:40:59 11:00:59 Care Madina Renee A Health 350.1.13.10 ity of [place] 4.2.7.2.686 Matthew as Professio [phone] [address] Office Building [facility] 2020-01-05 2020-01-05 Outpatient R MIKEUC [facility] [id number] Univers 10:40:00 10:40:00 MADINA ity of [facility] 2019-12-20 2019-12-20 Orders Doctor HILL 1.2.840.114 [id number] Univers 00:00:00 00:00:00 Only Unassigned, AYLIN 350.1.13.10 ity of [place] [facility] 4.2.7.2.686 Matthew as [id number] [address] 2019-12-19 2019-12-19 Appointmen [facility]MAIRA [facility] [id number] [place] 13:00:00 13:00:00 t; JENNY ALLISON M.D. Physici ANKUR, ans M.D. 2019-12-19 2019-12-19 [facility] Balaji Armas [facility] 1.2.093.484 [id number] Univers 00:00:00 00:00:00 Management Cam [place] 350.1.13.10 ity of [place] [id number] [address] 2019-11-03 2019-11-03 Refill Balaji Armas [facility] ..[id number] Univers 00:00:00 00:00:00 Cam [place] 350.1.13.10 i ty of [place] 4[place].2.[place] Profess[place] [phone] [address] 2019-10-04 2019-10-04 Appointestella LOPEZ [facility] [id number] [place] 14:00:00 14:00:00 t; Magaly HILL ans JOHN, M.D. 2019-09-18 2019-09-18 [facility] E [facility] 75[address] [facility] 15:05:00 11:49:00 2019-09-15 2019-09-15 AppointMODESTA Waggoner [facility] [id number] [place] 16:00:00 16:00:00 t; RENETTA ALEGRE M.D. Physici SHADE, ans M.D. 2019-09-14 2019-09-14 [place] Balaji Armas [facility] ..840.114 [id number] Univers 00:00:00 00:00:00 Cam [place] 350.1.13.10 i ty of [place] 4[place]2.[place].2.[place] Profess[place] [phone] Hi dic[address] 2019-09-07 2019-09-07 Refill Balaji Armas [facility] 1.2.638.905 [id number] Univers 00:00:00 00:00:00 Cam [place] 350.1.13.10 i ty of [place] 4[place] [phone] Hi dical nal [address] [facility] 2019-08-25 2019-08-25 Outpatient Velasquez MCKEON, [facility] [id number] 04:11:00 06:20:00 CHANDAN Medica [facility] 2019-08-04 2019-08-04 Orders Doctor SERGIO 1.2.840.114 [id number] Univers 00:00:00 00:00:00 Only Unassigned, AYLIN 350.1.13.10 ity of [facility] 4.2.7.2.686 Matthew as [id number] [address] 2019-07-17 2019-07-17 AppointMODESTA Bullock [id number] [place] 12:40:00 12:40:00 t; JOSUE ENCINAS Phys ici MONISHA, M.D. ans M.D. 2019-07-05 2019-07-05 MODESTA Lees UTP [id number] [place] 08:30:00 08:30:00 t; Magaly HILL ans JOHN, M.D. 2019-06-20 2019-06-20 MODESTA Delcid [id number] [place] 13:00:00 13:00:00 t; JENNY ALLISON M.D. Physici ANKUR, ans M.D. 2019-06-01 2019-06-01 Outpatient [facility] 7512 [facility] 07:34:00 07:34:00 2019-04-03 2019-04-03 MODESTA Lees UTP [id number] [place] 09:00:00 09:00:00 t; Magaly HILL ans JOHN, M.D. 2019-03-24 2019-03-24 Case Balaji Armas [facility] 1.2.829.102 [id number] Univers 00:00:00 00:00:00 Management Jasvir Willis 350.1.13.10 ity [facility] [place]2.7.2.[place] [phone] Hi dical nal [address] [facility] 2019-03-17 2019-03-17 AppointMODESTA Waggoner UTP [id number] [place] 13:40:00 13:40:00 t; RENETTA ALEGRE M.D. Physici SHADE, ans M.D. 2019-03-13 2019-03-13 [facility] ENCINAS [facility] [id number] [place] 14:10:00 14:10:00 t; JOSUE ENCINAS Phys ici MONISHA, M.D. ans M.D. 2019-02-13 2019-02-13 [facility] MODESTA ENCINAS [facility] [id number] [place] 12:40:00 12:40:00 t; JOSUE ENCINAS Phys ici MONISHA, M.D. ans M.D. 2018-12-26 2018-12-26 [facility] [id number] [place] 11:00:00 11:00:00 t; Magaly HILL ans JOHN, M.D. 2018-12-20 2018-12-20 [facility] [id number] [place] 14:00:00 14:00:00 t; JENNY ALLISON M.D. Physici ANKUR, ans M.D. 2018-11-18 2018-11-18 [facility] SIS [facility] [id number] [place] 10:40:00 10:40:00 t; RENETTA ALEGRE M.D. Physici SHADE, ans M.D. 2018-11-18 2018-11-18 [facility] [id number] [place] 10:30:00 10:30:00 t; RENETTA ALEGRE M.D. Physici SHADE, ans M.D. 2018-11-08 2018-11-08 [facility] [id number] [place] 13:10:00 13:10:00 t; JOSUE ENCINAS Phys ici MONISHA, M.D. ans M.D. Results Test Description Test Time Test Comments Results Result Comments Source [Q] HEPATITIS PANEL, ACUTE W/REFLEX 2020-11-05 12:37:00 Test Item Value Reference Range Interpretation Comme nts HEPATITIS NON-REACTIVE NON-REACTIVE N For additional information, please refer to A IGM [email or web address] [email or web address] (test code (This link is b eing provided for = informational/e ducational purposes only.) HEPATITIS A IGM) HEPATITIS NON-REACTIVE NON-REACTIVE N B SURFACE ANTIGEN; Normal (test code = 5195-3) HEPATITIS NON-REACTIVE NON-REACTIVE N B CORE ANTIBODY (IGM); Normal (test code = 63919-0) HEPATITIS NON-REACTIVE NON-REACTIVE N C ANTIBODY; Normal (test code = 47467-4) SIGNAL TO 0.01 <1.00 N HCV antibody wa s non-reactive. There is no CUT-OFF laboratory evid ence of HCV infection. In most (test code cases, no furth er action is required. However,if = SIGNAL recent HCV expo sure is suspected, a test for HCV TO RNA(test code 3 5645) is suggested. For additional CUT-OFF) information ple ase refer [email or web address] [email or web address]/FAQ22 v1(This link is being provided for informational/e ducational purposes only.) [facility][QL] CMP W/[id number] 12:37:00 Test Item Value Reference Range Interpretation Comments GLUCOSE; Normal 119 mg/dl 65-139 N Non-fasting (test code = reference inter osiris 1547-9) UREA NITROGEN (BUN) 17 mg/dl 7-20 N (test code = UREA NITROGEN (BUN)) CREATININE (test 0.70 mg/dl 0.50-1.00 N code = CREATININE) eGFR NON-AFR. 126 {ML/MIN/1.7} See_Comment N [Automate d [place] (test code message] The = eGFR NON-AFR. system which [place]) generated this result transmit micheal reference range : > OR = 60. The reference range was not used to interpret this result as normal/abnormal . eGFR 147 {ML/MIN/1.7} See_Comment N [Automated [place] (test code message] The = eGFR system which [place]) generated this result transmit micheal reference range [...] mg/dl 0.2-1.1 N Normal (test code = 55316-4) ALKALINE 112 u/l 36-128 N PHOSPHATASE (test code = ALKALINE PHOSPHATASE) AST; Below Low 10 u/l 12-32 Threshold (test code = 1916-6) ALT; Normal (test 13 u/l 5-32 N code = 1742-6) ME Physicians[Q] NMDA RECEPTOR ANITBODY [id number] 12:37:00 Test Item Value Reference Interpretation Comments Range NMDA RECEPTOR AB See Comment NEGATIVEThi s test did not INTERPRETATION detect abnorm al levels of (test code = NMDA anti-NR1 a ntibodies. RECEPTOR AB INTERPRETATION) TECHNICAL RESULTS See Comment (test code = TECHNICAL RESULTS) --------- ---Interpretive Result Table --INTERPRETIVE RESULT: Negativ eTEST: anti-[id number] AL RESULT: No abnormal levels of antibodies detected------- --- COMMENTS (test See Comment Comments: Thi s result does code = COMMENTS) not exclude a diagnosis of an autoimmuneetiol ogy for the neurological sy mptoms associated with paraneoplasticd isorder. Recommendations : Health care providers, [place] se contact the [facility] Client [facility] Depart [facility] at if you wishto speak with a cl inical it web development consultant chacho lazaro this test result. Ot her testing available: TeraDiode recommends samantha tionaltesting, if not already performed. [facility] offersthe follo wing antibody tests: anti-Hu, anti-Yo, anti-Zic4, anti -CV2,anti-Ma1, anti-Ta, anti-R i, anti-Recoverin, anti-VGCC, anti-VGKC,anti- Amphiphysin, anti-G-AChR, an ti-GAD65, anti-LGI1, and anti-CASPR2.Ple ase contact the [facility] Client [facility] Depart [facility] orvisit Witel .[place]e for information iraida petit that may be [...] a criti lucie role in centralnervous system (ELECTRICAL LOGGING ENGINEER) synaptic [place] and signal transmis sammie [...] REFERENCES) Semin Onc ol 33: 270-98. (PMID: 07991170 )2. JERROD Baird, et al. (201 1) Eur J Neurol 18: 19-e 3. (PMID: 10312126)3. Ishan Barnett et al. (2012) J Ne urol Neurosurg Psychiatry 83: 638-45. (PMID: 58527551)4. MR Megan, et al. (2010) Onco logist 15: 603-17. (PMID: 17975462)5. NEETU White, et al. (2007) Fiorella Rev Neurosci 8: 413-26. (PMID: 28110130 )6. Hope Ware, et al. (2008) L ancet Neurol 7: 327-40. (PMI D: [id number])7. Winterka, T, et a l. (2008) Neurology 70: 5 04-11. (PMID: 70348044)8. ILAN Plaza, et al. (2009) Jovita Neurol 66: 11-8. (PMID: 19 150655)9. Hope Ware, et a l. (2008) Lancet Neurol 7 : 1091-8. (PMID: 01063912 )10. Niehusmann P, et al. (2009) Arch Neurol 66: 458-64. (PMID: 29560292 ) Laboratory oversight provi ded by Corrine li M.D., Ph.D., [facility] nikunj sloan, Ivy [facility] (CLIA# [id number]) Haleigh stewart performed at:[employer] [address] [address] A cell-based assay (CBA) was used to [...]
[2022-09-08] MEDS ORDERED: NA CHLORIDE 0.9% 0 ML ONE (11:56)
[2022-09-08] MEDS ORDERED: FAMOTIDINE 20 MG/2 ML VIAL IV ONE (11:56)
[2022-09-08] MEDS ORDERED: FAMOTIDINE 20 MG TAB ONE (12:18)
--- NOTE | 2022-09-08 14:49 | EDPHYS ---
Physician Documentation [facility] Name: Ciara Rebolledo Age: 21 yrs Sex: Female : 2000 Arrival Date: 09/08/2022 Time: 11:44 Bed 4 Private MD: ED Physician Tan Ellis HPI: 09/08 17:44 This 21 yrs old Female presents to ER via EMS with complaints of allergic reaction. kb 17:44 The patient presents with shortness of breath, wheezing. Onset: The symptoms/episode kb began/occurred just prior to arrival. Associated signs and symptoms: Pertinent positives: shortness of breath. Possible causes: nuts. Severity of symptoms: At their worst the symptoms were severe in the emergency department the symptoms have improved markedly. The patient has experienced similar episodes in the past, a few times. The patient has not recently seen a physician. EMS reports pt got coffee at the [employer] and received someone else's order which she had an allergic reaction to. REports allergy to tree nuts. Pt had resp distress and wheezing per EMS. epinephrin, solumedrol duoneb and benadryl given in route, pt placed on CPAP. Pt has improved after treatment.. Historical: - Allergies: 11:58 Bactrim; ph 11:58 Sulfa (Sulfonamide Antibiotics); ph - PMHx: 11:58 Anxiety; Autoimmune Encephalitis; Spina Bifida Occulta; ph - Immunization history:: Adult Immunizations unknown. - Social history:: Smoking status: Patient denies any tobacco usage or history of. ROS: 17:42 Constitutional: Negative for fever, chills, and weight loss. kb 17:42 Respiratory: Positive for shortness of breath. 17:42 All other systems are negative. Exam: 17:42 Constitutional: This is a well developed, well nourished patient who is awake, alert, kb and in no acute distress. Head/Face: Normocephalic, atraumatic. ENT: Moist Mucous membranes Cardiovascular: Regular rate and rhythm with a normal S1 and S2. No gallops, murmurs, or rubs. No pulse deficits. Abdomen/GI: Soft, non-tender. No distention Skin: Warm, dry with normal turgor. Normal color. MS/ Extremity: Pulses equal, no cyanosis. Neurovascular intact. Full, normal range of motion. Neuro: Awake and alert, GCS 15, oriented to person, place, time, and situation. Moves all extremities. Normal gait. Psych: Awake, alert, with orientation to person, place and time. Behavior, mood, and affect are within normal limits. 17:42 Respiratory: the patient does not display signs of respiratory distress, Respirations: normal, Breath sounds: decreased breath sounds, that are moderate, are scattered. Vital Signs: 11:50 BP 119 / 74; Pulse 97; Resp 18; Pulse Ox 99% on R/A; Weight 127.01 kg; Height 5 ft. 4 ph in. (162.56 cm); 13:46 BP 106 / 64; Pulse 95; Resp 18; Pulse Ox 100% on R/A; ph 15:00 BP 110 / 72; Pulse 87; Resp 18; Temp 97.8; Pulse Ox 99% on R/A; ph 11:50 Body Mass Index 48.06 (127.01 kg, 162.56 cm) ph MDM: 11:48 Patient medically screened. kb 17:42 Differential diagnosis: anaphylaxis, angioedema, urticaria. Data reviewed: vital signs, kb nurses notes. Consideration of Admission/Observation Escalation of care including admission/observation considered. Historians other than the Patient: EMS: [facility]. Counseling: I had a detailed discussion with the patient and/or guardian regarding: the historical points, exam findings, and any diagnostic results supporting the discharge/admit diagnosis, the need for outpatient follow up, a family practitioner, to return to the emergency department if symptoms worsen or persist or if there are any questions or concerns that arise at home. ED course: Resp even and unlabored. Lung sounds clear throughout upon discharge. . 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 HPI: 21-year-old female ms3 presents via [facility], EMS for allergic reaction. EMS states patient is allergic to nuts. EMS administered 125 mg Solu-Medrol IM, 50 mg Benadryl IM, albuterol nebulized, and epinephrine x2 IM. My personal exam of patient reveals: Patient is alert and oriented x4, no apparent distress, nontoxic appearing. Breath sounds are clear. Heart rate is regular and tachycardic. Abdomen nontender palpation. Skin is dry and without diaphoresis. 18:48 Co-signature as Attending Physician, Tan Ellis DO. 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 kb Followup: kb - With: Emergency Department - When: As needed - Reason: Worsening of condition Followup: kb - With: Private Physician - When: 2 - 3 days - Reason: Recheck today's complaints, Continuance of care, Re-evaluation by your physician Discharge Instructions: - Discharge Summary Sheet kb - Food Allergy, [id number] kb Forms: - Medication Reconciliation Form kb - Thank You Letter kb - Antibiotic Education kb - Prescription Opioid Use kb Prescriptions: - Pepcid 20 mg Oral Tablet - take 1 tablet by ORAL route every 12 hours for 5 days; 10 tablet; Refills: 0, kb Product Selection Permitted - Prednisone 20 mg Oral Tablet - take 1 tablet by ORAL route once daily for 5 days; 5 tablet; Refills: 0, kb Product Selection Permitted Signatures: Karen Mas FNP-C FNP-Ckb Hall, Patricia, RN RN Tan Conte DO DO ms3
--- NOTE | 2022-09-08 14:49 | ER ---
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 50 mg PO Benadryl given by bystander, pt did vomit x 1, upon EMS arrival pt noted to be flushed w/ audible wheezes, unable to obtain IV access, meds given: 50 mg Benadryl IM, epi x 2 IM, 125 Solu-Medrol IM, A\T\A neb tx x 2, pt placed on c-pap for airway support, 100% RA upon arrival to ED, some wheezing still noted. Coronavirus screen: Vaccine status: Patient reports receiving the 2nd dose of the covid vaccine. Ebola Screen: No symptoms or risks identified at this time. Initial Sepsis Screen: Does the patient meet any 2 criteria? No. Patient's initial sepsis screen is negative. Does the patient have a suspected source of infection? No. Patient's initial sepsis screen is negative. Risk Assessment: Do you want to hurt yourself or someone else? Patient reports no desire to harm self or others. Onset of symptoms was September 08, 2022. 11:50 Method Of Arrival: EMS: [facility] 11:50 Acuity: KRYSTAL 2 ph Triage Assessment: 11:58 General: Appears in no apparent distress. Behavior is calm, cooperative. Pain: Complains of pain in chest. Neuro: Level of Consciousness is awake, alert, obeys commands, Oriented to person, place, time, situation. Cardiovascular: Capillary refill < 3 seconds in bilateral fingers Patient's skin is warm and dry. Rhythm is sinus tachycardia. Respiratory: Reports shortness of breath Airway is patent Respiratory effort is even, unlabored, Breath sounds with wheezes. Musculoskeletal: Circulation, motion, and sensation intact. Range of motion: intact in all extremities. Historical: - Allergies: 11:58 Bactrim; ph 11:58 Sulfa (Sulfonamide Antibiotics); ph - PMHx: 11:58 Anxiety; Autoimmune Encephalitis; Spina Bifida Occulta; ph - Immunization history:: Adult Immunizations unknown. - Social history:: Smoking status: Patient denies any tobacco usage or history of. Screenin:00 [facility] ED Fall Risk Assessment (Adult) History of falling in the last 3 months, ph including since admission No falls in past 3 months (0 pts). Abuse screen: Denies threats or abuse. Denies injuries from another. Nutritional screening: No deficits noted. Tuberculosis screening: No symptoms or risk factors identified. Assessment: 12:15 General: SEE TRIAGE ASSESSMENT. ph 13:59 Reassessment: Patient appears in no apparent distress at this time. Patient and/or ph family updated on plan of care and expected duration. Pain level reassessed. Patient is alert, oriented x 3, equal unlabored respirations, skin warm/dry/pink. Vital Signs: 11:50 BP 119 / 74; Pulse 97; Resp 18; Pulse Ox 99% on R/A; Weight 127.01 kg; Height 5 ft. 4 ph in. (162.56 cm); 13:46 BP 106 / 64; Pulse 95; Resp 18; Pulse Ox 100% on R/A; ph 15:00 BP 110 / 72; Pulse 87; Resp 18; Temp 97.8; Pulse Ox 99% on R/A; ph 11:50 Body Mass Index 48.06 (127.01 kg, 162.56 cm) ph ED Course: 11:44 Patient arrived in ED. bd 11:47 Karen Mas FNP-C is [facility]. kb 11:47 Tan Ellis DO is Attending Physician. kb 11:50 Ladi Myers, ZINA is Primary Nurse. ph 11:58 Triage completed. ph 12:00 Arm band placed on Patient placed in an exam room, on a stretcher, on potline monitor, ph on pulse oximetry. 12:00 Patient has correct armband on for positive identification. Bed in low position. Call ph light in reach. Side rails up X2. Client placed on continuous cardiac and pulse oximetry monitoring. NIBP monitoring applied. 15:30 No provider procedures requiring assistance completed. Patient did not have IV access ph during this emergency room visit. Administered Medications: 12:25 Drug: Pepcid (famotidine) 20 mg Route: PO; ph 13:30 Follow up: Response: No adverse reaction ph 12:33 Not Given (Other Intervention Used): Pepcid (famotidine) 20 mg IVP once; dilute with 10 ph mL 0.9% NaCl; give over 2 minutes 12:33 Not Given (Other Intervention Used): NS 0.9% 1000 ml IV at 1000 ml once ph Medication: 12:00 VIS not applicable for this client. ph Outcome: 14:49 Discharge ordered by MD. oden 15:30 Discharged to home ambulatory, with family. ph 15:30 Condition: good 15:30 Discharge instructions given to patient, family, Instructed on discharge instructions, follow up and referral plans. medication usage, Demonstrated understanding of instructions, follow-up care, medications, Prescriptions given X 2. 15:31 Patient left the ED. ph Signatures: Karen Mas, TEGAN-Velasquez JAVED-Dominique West Patricia, RN RN ph
[2022-09-08 16:19] VITALS: BP 106/64; O2SAT 100
== END 2022-09-08 15:31 | disposition home or self-care (01) ==
LOC: ER 11:39
DX: R06.02 Shortness of breath (principal); R06.2 Wheezing; Z91.010 Allergy to peanuts; Z88.1 Allergy status to other antibiotic agents; Z88.2 Allergy status to sulfonamides
CPT/HCPCS: 99284; J7030